=== PATIENT | female | born 1980 | race Caucasian/White ===

== ENCOUNTER 2022-02-25 12:37 | Outpatient (RCR) | payer MEDICAID, SELFPAY ==
[2022-02-25 12:53] VITALS: BP 139/91; PULSE 84; RESP 16; TEMP 36.4; O2SAT 97
[2022-02-25] MEDS: ACETAMINOPHEN 325 MG TABLET 650 MG PO (13:15)
[2022-02-25] MEDS: diphenhydrAMINE 12.5 MG/5 ML ORAL SOLN PO (13:22)
[2022-02-25] MEDS: 0.9 % SODIUM CHLORIDE 250 ml 250 ML 35 ML IV (13:23)
[2022-02-25] MEDS: METHYLPREDNISOLONE SOD SUCC 40 MG/ML IVP (13:24)
[2022-02-25 15:55] VITALS: BP 150/98; PULSE 84; RESP 16; TEMP 36.4; O2SAT 97
== END 2022-02-27 23:59 | disposition home or self-care (01) ==
LOC: CCIC 12:37
PROVIDERS: PCP Family Medicine; Visit Provider Clinical Nurse Specialist
DX: L40.50 Arthropathic psoriasis, unspecified (principal)
CPT/HCPCS: 96365; 96366; 96376; A9270; J2920; J7050

== ENCOUNTER 2022-09-30 12:30 | Outpatient (RCR) | payer MEDICAID, OTHER, SELFPAY ==
[2022-04-08 11:45] VITALS: BP 148/88; PULSE 117; RESP 16; TEMP 36.1; O2SAT 95
[2022-04-08] MEDS: ACETAMINOPHEN 325 MG TABLET 650 MG PO (12:27)
[2022-04-08] MEDS: diphenhydrAMINE 12.5 MG/5 ML ORAL SOLN PO (12:27)
[2022-04-08] MEDS: METHYLPREDNISOLONE SOD SUCC 40 MG/ML IVP (12:27)
[2022-05-20 11:15] VITALS: BP 138/103; PULSE 105; RESP 16; TEMP 35.9; O2SAT 98
[2022-05-20] MEDS: diphenhydrAMINE 12.5 MG/5 ML ORAL SOLN PO (11:24)
[2022-05-20] MEDS: METHYLPREDNISOLONE SOD SUCC 40 MG/ML IVP (11:24)
[2022-05-20] MEDS: ACETAMINOPHEN 325 MG TABLET 650 MG PO (14:37)
--- NOTE | 2022-06-17 12:04 | PC.NURSE ---
Called pt and LM on her primary number with message of infusion appointment on 07/01/2022 at 9:00 AM. Invited a call back with follow-up questions.
[2022-07-07 10:46] VITALS: BP 156/99; PULSE 94; RESP 16; TEMP 35.7; O2SAT 97
[2022-07-07] MEDS: ACETAMINOPHEN 325 MG TABLET 650 MG PO (10:59)
[2022-07-07] MEDS: diphenhydrAMINE 12.5 MG/5 ML ORAL SOLN PO (11:03)
[2022-07-07] MEDS: METHYLPREDNISOLONE SOD SUCC 40 MG/ML IVP ×2 (11:04→11:29)
[2022-07-07] MEDS: SODIUM CHLORIDE 0.9 % (FLUSH) 10 ML SYRINGE IVF (14:57)
[2022-08-19 12:30] VITALS: BP 140/80; PULSE 110; RESP 16; TEMP 36.1; O2SAT 96
[2022-08-19] MEDS: diphenhydrAMINE 12.5 MG/5 ML ORAL SOLN PO (13:04)
[2022-08-19] MEDS: ACETAMINOPHEN 325 MG TABLET 650 MG PO (13:05)
[2022-08-19] MEDS: METHYLPREDNISOLONE SOD SUCC 40 MG/ML IVP (13:18)
--- NOTE | 2022-09-09 16:21 | PC.NURSE ---
Addendum entered by Damaris Ayala RN 09/23/22 10:19: UR department notified [facility] that with new insurance, patient needs to be changed to Inflectra and Site of Care Request for Information needs to be filled out. Chief Payroll Clerk contacted ordering senior electronics engineer and they gave the verbal okay to use inflectra. In the meantime per UR the drug was denied. Chief Payroll Clerk will have UR attempt this again with the use of Inflectra. Patient long and notified of this, she is anxious as she started a new job and getting next Monday off was difficult. Nursing to continue to work on this and patient will call Dr. Fisher to ask to send order EDUARDA. Patient also notes that per Emergency order, her [facility] is still in place through November. Chief Payroll Clerk to inform UR of this as well. Original Note: Pt called with new insurance information and asked to have her medication prior authorized with this new insurance ahead of her next appointment on 09/30/2022. [employer] ID: [id number] Group: [id number] RN advised pt to bring her insurance card with her so that the registration staff could enter it into the system and scan her card. Pt will do so.
--- NOTE | 2022-09-27 14:56 | URNOTE ---
Request received for authorization for?Inflectra (Q5103). Prior authorization is approved for Inflectra by [facility] from 09/23/2022 to 12/21/2022. [facility] does not required prior authorization for Inflectra per medical injectable list on [facility] website.
[2022-09-30 12:43] VITALS: BP 131/85; PULSE 105; RESP 16; TEMP 35.7; O2SAT 96
[2022-09-30] MEDS: ACETAMINOPHEN 325 MG TABLET 650 MG PO (13:03)
[2022-09-30] MEDS: diphenhydrAMINE 12.5 MG/5 ML ORAL SOLN PO (13:05)
[2022-09-30] MEDS: METHYLPREDNISOLONE SOD SUCC 40 MG/ML IVP (13:18)
== END 2022-10-05 23:59 | disposition home or self-care (01) ==
LOC: CCIC 12:30
PROVIDERS: PCP Family Medicine; Referring Provider Family Medicine; Visit Provider Clinical Nurse Specialist
DX: L40.50 Arthropathic psoriasis, unspecified (principal)
CPT/HCPCS: 96376; 96413; 96415; Q5103; A9270; J2920; J7050

== ENCOUNTER 2023-04-07 10:00 | Outpatient (RCR) | payer OTHER, MEDICAID, SELFPAY ==
[2022-11-11] MEDS: diphenhydrAMINE 12.5 MG/5 ML ORAL SOLN PO (09:43)
[2022-11-11] MEDS: ACETAMINOPHEN 325 MG TABLET 650 MG PO (09:43)
[2022-11-11] MEDS: METHYLPREDNISOLONE SOD SUCC 40 MG/ML IVP (09:56)
--- NOTE | 2022-12-06 11:39 | ONC.NURNOTE ---
Patient called office and inquires about her PA being started. This has not been started, as her last note states that she is supposed to be seen in four months. Patient needs prior authorization done each time that this is checked, so new note and last labs will need to be sent to office in order to start the process. Patient told that orders are good until March, unless provider wants to change the dose or frequency. Patient is seeing relay associate this afternoon.
--- NOTE | 2022-12-19 12:53 | ONC.NURNOTE ---
Payal called for status of PA and to set up next appts she was informed that her PA is still pending- appt is currently scheduled for 12/21
--- NOTE | 2022-12-19 15:05 | URNOTE ---
Addendum entered by Jamilah Ibarra RN 12/20/22 14:29: left message with pt stating inflectra was denied. Appt for 12/21/22 cancelled. Original Note: REceived request for prior auth for INfelctra. This has been DENIED. Pt will need to receive at an alternative setting or home infusion. Auth #[id number] See scanned insurance form
[2022-12-21 09:44] VITALS: BP 165/96; PULSE 96; RESP 16; TEMP 35.6; O2SAT 97
[2022-12-21] MEDS: ACETAMINOPHEN 325 MG TABLET 650 MG PO (10:01)
[2022-12-21] MEDS: METHYLPREDNISOLONE SOD SUCC 40 MG/ML IVP ×2 (10:25→10:42)
[2022-12-21] MEDS: diphenhydrAMINE 12.5 MG/5 ML ORAL SOLN PO (10:25)
[2022-12-21] MEDS: 0.9 % SODIUM CHLORIDE 250 ml 250 ML 35 ML IV (11:02)
--- NOTE | 2023-01-30 13:14 | ONC.NURNOTE ---
Received call from Razia with Dr. Fisher's [facility] ([facility]) asking for additional information. Per Razia, pt contacted them asking for a [id number] to be completed to continue infusions here. Reviewed previous notes with Razia citing reason for denial is d/t needing to receive infusions at home or at a non-hospital based infusion center. Dr. Fisher's team will work on [id number].
--- NOTE | 2023-02-16 01:18 | URNOTE ---
Received letter from [employer] (see scanned documents). After appeal, Inflectra has been approved 12/22/2022-02/15/2024 to be given at [facility]. Authorization #[id number]
[2023-02-20] MEDS: METHYLPREDNISOLONE SOD SUCC 62.5 MG/ML (125) 40 MG IVP (13:23)
[2023-02-20] MEDS: ACETAMINOPHEN 325 MG TABLET 650 MG PO (13:24)
[2023-02-20 13:29] VITALS: BP 127/86; PULSE 95; RESP 18; TEMP 36.4; O2SAT 98
[2023-02-20] MEDS: diphenhydrAMINE 12.5 MG/5 ML ORAL SOLN PO (13:34)
[2023-04-07] MEDS: ACETAMINOPHEN 325 MG TABLET 650 MG PO (11:11)
[2023-04-07] MEDS: diphenhydrAMINE 12.5 MG/5 ML ORAL SOLN PO (11:17)
[2023-04-07] MEDS: METHYLPREDNISOLONE SOD SUCC 40 MG/ML IVP (11:17)
== END 2023-05-10 23:59 | disposition home or self-care (01) ==
LOC: CCIC 10:00
PROVIDERS: PCP Family Medicine; Referring Provider Family Medicine; Visit Provider Clinical Nurse Specialist
DX: L40.50 Arthropathic psoriasis, unspecified (principal)
CPT/HCPCS: 96376; 96413; 96415; Q5103; A9270; J2920; J2930; J7050

== ENCOUNTER 2023-08-24 16:31 | Emergency (ER) | payer OTHER, MEDICAID, SELFPAY ==
--- NOTE | 2023-08-24 16:33 | ED.GENADULT ---
HPI - General Adult General Date Seen: 08/24/23 Chief complaint: Nausea/Vomiting Stated complaint: Pain under right rib, diarrhea, nausea Time Seen by Provider: 08/24/23 16:32 History of Present Illness HPI narrative: This is a 42-year-old female with a past medical history including psoriatic arthritis (on Remicade), irritable bowel syndrome, fibromyalgia, anxiety, GERD, endometriosis, hypertension, high who is referred from the Urgent Care to the ER for evaluation of abdominal pain and diarrhea. Symptoms began 4 days ago on Monday evening with a general able malaise and then an episode of watery diarrhea. She felt fatigued and malaise following day on Monday and did have a few more episodes of watery, nonbloody, me non mucousy diarrhea. 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 She has had ongoing symptoms for the past couple of days including frequent watery diarrhea-triggered whenever she eats or drinks. She has been nauseous but not vomiting. She has been weak and sometimes has had chills but no objective fever. She has been experiencing abdominal pain some on the left and some on the right. Last night she had an episode that lasted an hour to of intense stabbing right upper quadrant abdominal pain. The patient relates it as similar in intensity to uterine contractions during delivery, but it was in the right upper quadrant. She is not having any further right upper quadrant pain today. She is having some mild sensitivity and tenderness in her upper abdomen as well as on the left side. She is feeling fatigued and weak. She still having frequent watery diarrhea. She tried to take Pepto-Bismol for her diarrhea, without any benefit. No recent travel. No recent antibiotics. Related Data Home Medications Medication Instructions Recorded Confirmed albuterol sulfate 90 mcg/actuation 2 inh inhalation Q4-6H PRN 02/25/22 08/24/23 aerosol inhaler (ProAir HFA) cetirizine 10 mg tablet (Zyrtec) 10 mg PO DAILY PRN 02/25/22 08/24/23 diazepam 5 mg tablet 5 mg PO TID PRN 02/25/22 08/24/23 dicyclomine 20 mg tablet 20 mg PO QID PRN 02/25/22 08/24/23 epinephrine 0.15 mg/0.3 mL 0.3 mg IM Q10M PRN 02/25/22 08/24/23 injection,auto-injector levonorgestrel 21 mcg/24 hours (8 1 device intrauterine ONCE 02/25/22 08/24/23 yrs) 52 mg intrauterine device sumatriptan succinate 25 mg tablet See Rx Instructions PO .COMPLEX 02/25/22 08/24/23 triamcinolone acetonide 0.1 % 1 applic topical BID PRN 02/25/22 08/24/23 topical cream duloxetine 30 mg capsule,delayed 60 mg PO DAILY 04/08/22 08/24/23 release leflunomide 10 mg tablet 10 mg PO DAILY 04/08/22 08/24/23 cyclobenzaprine 5 mg tablet 5 mg PO Q12H PRN 05/09/22 08/24/23 infliximab 100 mg intravenous IV 09/05/22 08/24/23 solution (Remicade) semaglutide 0.25 mg or 0.5 mg (2 0.25 mg subcut QWEEK 04/07/23 08/24/23 mg/1.5 mL) subcutaneous pen injector Previous Rx's Medication Instructions Recorded loperamide 2 mg capsule 2 mg PO Q4H PRN loose stool #10 08/24/23 caps ondansetron 4 mg disintegrating 4 mg PO Q8H PRN nausea and 08/24/23 tablet vomiting #10 tabs Allergies Allergy/AdvReac Type Severity Reaction Status Date / Time bee venom protein (honey bee) Allergy Severe Anaphylaxis Verified 08/11/23 08:45 honey Allergy Severe Anaphylaxis Verified 08/11/23 08:45 latex Allergy Severe Verified 08/11/23 08:45 shrimp Allergy Severe Verified 08/11/23 08:45 shellfish derived Allergy Intermediate Swelling Verified 08/11/23 08:45 of Lip/Tongue/Throat avocado AdvReac Intermediate Verified 08/11/23 08:45 methotrexate AdvReac Intermediate Verified 08/11/23 08:45 Bee Wax Allergy Severe Anaphylaxis Uncoded 03/10/23 18:13 PFSH PFSH Medical History Strep pharyngitis ?J02.0 - Streptococcal pharyngitis (ICD-10) History of migraine ?Z86.69 - Personal history of other diseases of the nervous system and sense organs (ICD-10) IUD (intrauterine device) in place ?Z97.5 - Presence of (intrauterine) contraceptive device (ICD-10) PTSD (post-traumatic stress disorder) ?F43.10 - Post-traumatic stress disorder, unspecified (ICD-10) Hypertension ?I10 - Essential (primary) hypertension (ICD-10) Fibromyalgia (12/28/17) ?M79.7 - Fibromyalgia (ICD-10) Vitamin D deficiency ?E55.9 - Vitamin D deficiency, unspecified (ICD-10) Irritable bowel syndrome ?K58.9 - Irritable bowel syndrome without diarrhea (ICD-10) History of depression (06/26/13) ?Z87.59 - Personal history of other complications of , childbirth and the puerperium (ICD-10) ?Z86.59 - Personal history of other mental and behavioral disorders (ICD-10) Generalized anxiety disorder ?F41.1 - Generalized anxiety disorder (ICD-10) Gastroesophageal reflux disease (08/10/15) ?K21.9 - Gastro-esophageal reflux disease without esophagitis (ICD-10) Endometriosis (08/19/09) ?N80.9 - Endometriosis, unspecified (ICD-10) Immunosuppressed status ?D84.9 - Immunodeficiency, unspecified (ICD-10) Psoriatic arthritis ?L40.50 - Arthropathic psoriasis, unspecified (ICD-10) Multiple drug allergies ?Z88.9 - Allergy status to unspecified drugs, medicaments and biological substances (ICD-10) Surgical History History of benign breast biopsy ?Z98.890 - Other specified postprocedural states (ICD-10) History of laparoscopy (08/19/09) ?Z98.890 - Other specified postprocedural states (ICD-10) Family History Mother Diabetes High cholesterol Skin cancer Rheumatoid arthritis Sister Rheumatoid arthritis Daughter Rheumatoid arthritis Social History Narrative: . 3 children. Nonsmoker. 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 Highest level of school completed/degree received: Bachelor's degree How many days of moderate to strenuous exercise, like a brisk walk, did you do in the last 7 days: 3 Smoking Status: Never smoker Do you use any of these nicotine containing products: None Second hand tobacco smoke exposure: No How often do you have a drink containing alcohol: never How often do you have six or more drinks on one occasion: Never AUDIT-C Alcohol total score: 0 Non-prescribed substance use: denies use Are you now , , , , never or living with a partner: Social isolation score (0-1 are the most socially isolated patients): 0 Do you think of yourself as: straight/heterosexual Gender Identity: female Are you currently sexually active: No service: No Exam Narrative: Exam Narrative: Constitutional: Appears well-developed and well-nourished. Alert. Conversant. Non toxic. HENT: Head: Atraumatic. Nose: Nose normal. Mouth/Throat: Oral mucosa is clear and moist. Not desiccated or cracked. no trismus. Pharynx normal. Eyes: Conjunctivae normal. EOM normal. Pupils equal, round, and reactive to light. No scleral icterus. Neck: Normal range of motion. Neck supple. No tracheal deviation present. Cardiovascular: Normal rate, regular rhythm. No gallop. No friction rub. No murmur heard. Symmetric radial artery pulses Pulmonary/Chest: Effort normal. No stridor. No respiratory distress. No wheezes. No rales. No rhonchi . No tenderness. Abdominal: Soft. Bowel sounds normal. No distension. No mass. Left lower quadrant> right upper quadrant and epigastric tenderness. No right lower quadrant tenderness. No CVA tenderness. No rebound. No guarding. Musculoskeletal: RUE: Normal range of motion. No tenderness. No deformity LUE: Normal range of motion. No tenderness. No deformity RLE: Normal range of motion. No edema. No tenderness. No deformity LLE: Normal range of motion. No edema. No tenderness. No deformity Neurological: Alert and oriented to person, place, and time. Normal strength. CN II-VII intact. No sensory deficit. GCS eye subscore is 4. GCS verbal subscore is 5. GCS motor subscore is 6. Normal coordination Skin: Skin is warm and dry. No rash noted. No pallor. Normal capillary refill. Psychiatric: Normal mood. Normal affect. Const: Vital Signs, click to edit/add: Vital Signs - 24 hr 08/24/23 16:41 08/24/23 18:53 Temperature 97.9 F Pulse Rate [Pulse Oximeter] 97 108 H Respiratory Rate 16 Blood Pressure [Ri ght Upper Arm] 182/119 H 166/111 H Pulse Oximetry 98 99 Oxygen Delivery Me thod Room Air Room Air Course Vital Signs Vital signs: Initial Vital Signs Temperature 97.9 F 08/24/23 16:41 Temperature Source Temporal Artery Scan 08/24/23 16:41 Pulse Rate 97 08/24/23 16:41 Pulse Rhythm Regular 08/24/23 16:41 Respiratory Rate 16 08/24/23 16:41 Blood Pressure 182/119 H 08/24/23 16:41 Blood Pressure Mean 140 H 08/24/23 16:41 Blood Pressure Position Sitting 08/24/23 16:41 Pulse Oximetry 98 08/24/23 16:41 Oxygen Delivery Method Room Air 08/24/23 16:41 Vital Signs Temperature 97.9 F 08/24/23 16:41 Pulse Rate 97 08/24/23 16:41 Respiratory Rate 16 08/24/23 16:41 Blood Pressure 182/119 H 08/24/23 16:41 Pulse Oximetry 98 08/24/23 16:41 Oxygen Delivery Method Room Air 08/24/23 16:41 Temperature 97.9 F 08/24/23 16:41 Pulse Rate 108 H 08/24/23 18:53 Respiratory Rate 16 08/24/23 16:41 Blood Pressure 166/111 H 08/24/23 18:53 Pulse Oximetry 99 08/24/23 18:53 Oxygen Delivery Method Room Air 08/24/23 18:53 Medications Administered Medications: Discontinued Medications Generic Name Dose Route Start Last Admin Trade Name Freq PRN Reason Stop Dose Admin Sodium Chloride 1,000 mls @ 1,000 mls/hr 08/24/23 17:45 08/24/23 18:32 0.9 % Sodium Chloride 1000 Ml IV 08/24/23 18:44 1,000 mls/hr .Q1H JAMIE Administration Ondansetron HCl 4 mg 08/24/23 17:56 08/24/23 18:00 Ondansetron 2 Mg/Ml Inj IVP 08/24/23 17:57 4 mg ONCE ONE Administration Medical Decision Making MDM Narrative Medical decision making narrative: This patient presents with a 4 day history of watery diarrhea associated with an intense episode of crampy right upper quadrant abdominal pain last night (now resolved today) and persistent left-sided abdominal pain since yesterday. The patient's symptoms and exam could be consistent with a viral GI infection. She also just started on Ozempic which can cause diarrhea and abdominal symptoms. She also has a history of irritable bowel syndrome. There is no high fever, white count is normal. No bilious or bloody emesis, blood or mucous in the stool, or other strongly suspicious signs for a bacterial infection. However I did order stool cultures since she is immunosuppressed on Remicade for psoriatic arthritis. No recent antibiotics but will also add on C diff testing. Fortunately, diarrhea has actually stopped here in the ER and she is tolerating oral apple sauce and liquids, and not triggering episodes of diarrhea. Will send the patient home with stool collection kit so she can bring a sample back if diarrhea persist. She did have significant abdominal pain, most notable in the left lower quadrant on my exam. CT scan is obtained and is fortunately normal. No evidence for colitis, diverticulitis, bowel obstruction, appendicitis, or other surgical emergency. With consideration toward her episode of right upper quadrant pain yesterday, no obvious gallstones or signs of cholecystitis on the CT. With no persistent right upper quadrant pain would hold off on gallbladder ultrasound for now. Labs show no concerning electrolyte disturbance or renal failure. LFTs and lipase normal. After meds given the patient is feeling better. At this point, the patient is non-septic appearing and well hydrated.I think the patient can be managed as an outpatient. We have discussed oral rehydration strategies. They understand and can perform the needed interventions at home. I have provided a prescription for antiemetics to facilitate oral hydration (Imodium, Zofran). We have discussed the signs and symptoms of worsening dehydration. They understand the need for immediate reevaluation if any of these symptoms occur. They are also directed to obtain close outpatient follow up within 2-3 days. Lab Data Labs: Lab Results 08/24/23 Range/Units 17:50 WBC 9.07 (4.50-11.00) K/uL RBC 5.49 H (4.00-5.20) m/uL Hgb 14.6 (12.0-16.0) gm/dL Hct 45.5 (33.0-51.0) % MCV 83 (80-100) fL MCH 27 (26-34) pg MCHC 32 (32-36) gm/dL RDW Coeff of Fouzia 13.0 (11.5-15.5) % Plt Count 231 (140-440) K/uL Neut % (Auto) 68.4 (42.0-72.0) % Lymph % (Auto) 24.0 (20-44) % [place] % (Auto) 5.0 (0.0-11.0) % Eos % (Auto) 2.3 (0.0-7.0) % Baso % (Auto) 0.2 (0.0-3.0) % Neut # (Auto) 6.20 (1.7-7.0) K/uL Lymph # (Auto) 2.18 (0.90-2.90) K/uL [place] # (Auto) 0.50 (0.00-0.90) K/UL Eos # (Auto) 0.21 (0.00-0.50) K/uL Baso # (Auto) 0.02 (0.00-0.30) K/uL Abs Immat Gran (auto) 0.01 (0.00-0.30) K/uL Imm/Tot Granulo (auto) 0.1 % Sodium 137 (135-149) mmol/L Potassium 3.9 (3.6-5.1) mmol/L Chloride 104 (96-114) mmol/L Carbon Dioxide 25 (20-32) mmol/L Anion Gap 8 (7-15) mEq/L BUN 10 (5-24) mg/dL Creatinine 0.8 (0.5-1.5) mg/dL Estimated Creat Clear 74.23 Estimated GFR 93 ml/min Glucose 94 (60-115) mg/dL Calcium 9.2 (8.4-10.6) mg/dL Total Bilirubin 0.2 (0.1-1.5) mg/dL AST 22 (12-35) U/L ALT 16 (4-35) U/L Alkaline Phosphatase 64 (40-150) U/L Total Protein 7.7 (6.0-8.3) g/dL Albumin 4.3 (3.3-5.0) g/dL Lipase 28 (23-300) U/L Imaging Data CT scan - abdomen: Attestation: I have reviewed the pertinent imaging results. Radiologist's impression: IMPRESSION: No acute intra-abdominal process identified. Discharge Plan Discharge Clinical Impression: Diarrhea, Abdominal pain Patient Disposition: Home, Self-Care Condition: Stable Instructions: Acute Diarrhea (ED), Abdominal Pain (ED) Additional Instructions: As we discussed, use Zofran for nausea and Imodium if needed for diarrhea. If you have ongoing diarrhea, please bring a sample of the diarrhea back to the lab to get tested for the bacterial infections and C diff. If you have worsening symptoms such as high fever, severe pain, bloody stool, weakness or lightheadedness, or dehydration, please come back to the ER right away. If your symptoms are not completely resolved within 3 days, please recheck with your regular doctor, or come back to the ER for a recheck. Prescriptions: New ondansetron 4 mg tablet,disintegrating 4 mg PO Q8H PRN (Reason: nausea and vomiting) Qty: 10 0RF loperamide 2 mg capsule 2 mg PO Q4H PRN (Reason: loose stool) Qty: 10 0RF Rx Instructions: administer after each loose stool until symptoms controlled; do not exceed 8 mg per 24 hrs No Action cyclobenzaprine 5 mg tablet 5 mg PO Q12H PRN infliximab [Remicade] 100 mg recon soln IV albuterol sulfate [ProAir HFA] 90 mcg/actuation HFA aerosol inhaler 2 inh inhalation Q4-6H PRN cetirizine [Zyrtec] 10 mg tablet 10 mg PO DAILY PRN diazepam 5 mg tablet 5 mg PO TID PRN dicyclomine 20 mg tablet 20 mg PO QID PRN epinephrine 0.15 mg/0.3 mL auto-injector 0.3 mg IM Q10M PRN Rx Instructions: for 2 doses levonorgestrel 20 mcg/24 hours (7 yrs) 52 mg intrauterine device 1 device intrauterine ONCE sumatriptan succinate 25 mg tablet See Rx Instructions PO .COMPLEX Rx Instructions: take 1 tab at onset of headache; if no relief may repeat 1 tab after at least 2 hrs; max = 4 tabs/24 hr PO triamcinolone acetonide 0.1 % cream 1 applic topical BID PRN duloxetine 30 mg capsule,delayed release(DR/EC) 60 mg PO DAILY Patient Comments: CROSS TAPER W/SERTRALINE INSTRUCTED. START DULOXETINE 30MG DAILY X1WK THEN INCREASE TO 60MG DAILY leflunomide 10 mg tablet 10 mg PO DAILY Patient Comments: TAKE 1 TABLET BY MOUTH EVERY DAY semaglutide 0.25 mg or 0.5 mg(2 mg/1.5 mL) pen injector 0.25 mg subcut QWEEK Rx Instructions: for 4 weeks Follow Up/Referrals: Mary Lou Nunn DO [Primary Care Provider] - Stand Alone Forms: MyHealth Info Instructions
[2023-08-24 16:41] VITALS: BP 182/119; PULSE 97; RESP 16; TEMP 36.6; O2SAT 98; BMI 41.3
--- NOTE | 2023-08-24 17:39 | CRLHL7_ITS ---
For Patients: As a result of the Century Cures Act, medical imaging exams and procedure reports are released immediately into your electronic medical record. You may view this report before your referring provider. If you have questions, please contact your health care provider. INDICATION: Lug AND RUQ PAIN, DIARRHEA. TECHNIQUE: CT abdomen and pelvis acquired with 115 cc Isovue 370 IV contrast. COMPARISON: None. FINDINGS: Lower chest: Unremarkable. Liver: Unremarkable. Normal in size and attenuation. No suspicious masses. Gallbladder and bile ducts: Unremarkable. No stones or inflammation. No biliary dilatation. Pancreas: Unremarkable. No mass or inflammation. Spleen: Unremarkable. Normal in size. No masses. Adrenal glands: Unremarkable. No nodules. Kidneys: Unremarkable. No suspicious masses, stones, or hydronephrosis. GI tract: Unremarkable. Normal in caliber. No sign of mass or inflammation. Normal appendix. Vasculature: Abdominal aorta is normal in caliber. Mesenteric arteries are patent. Lymph nodes: No lymphadenopathy. Peritoneum/Abdominal Wall: Small fat containing umbilical hernia. No sign of mass or infiltration. No free air or significant free fluid. Pelvis: IUD appears to be appropriately position. Uterus and bladder are otherwise unremarkable. Bones: Unremarkable for age. IMPRESSION: No acute intra-abdominal process identified. Please note that all CT scans at this facility use dose modulation, iterative reconstruction, and/or weight-based dosing when appropriate to reduce radiation dose to as low as reasonably achievable. Dictated by Tanmay Mittal MD @ 08/24/2023 6:48:16 PM (Electronically Signed)
[2023-08-24] MEDS: ONDANSETRON 2 MG/ML inj 4 MG IVP (18:00)
[2023-08-24 18:03] LABS: Basophils Absolute Auto 0.02 K/uL (0.00-0.30); Basophils Percent Auto 0.2 % (0.0-3.0); Eosinophils Absolute Auto 0.21 K/uL (0.00-0.50); Eosinophils Percent Auto 2.3 % (0.0-7.0); Hematocrit 45.5 % (33.0-51.0); Hemoglobin* 14.6 gm/dL (12.0-16.0); Immature Granulocytes Abs Auto 0.01 K/uL (0.00-0.30); Immature Granulocytes Pct Auto 0.1 %; Lymphocytes Absolute Auto 2.18 K/uL (0.90-2.90); Mean Corpuscular HGB Conc 32 gm/dL (32-36); Mean Corpuscular Hemoglobin 27 pg (26-34); Mean Corpuscular Volume 83 fL (80-100); Neutrophils Percent Auto 68.4 % (42.0-72.0); Platelet Count* 231 K/uL (140-440); Red Blood Count 5.49 m/uL (4.00-5.20); White Blood Count* 9.07 K/uL (4.50-11.00)
[2023-08-24 18:13] LABS: Slide Review Reflex No
[2023-08-24 18:16] LABS: Albumin* 4.3 g/dL (3.3-5.0)
[2023-08-24 18:17] LABS: Chloride* 104 mmol/L (96-114); Potassium* 3.9 mmol/L (3.6-5.1); Sodium* 137 mmol/L (135-149)
[2023-08-24 18:19] LABS: Alkaline Phosphatase* 64 U/L (40-150); Anion Gap 8 mEq/L (7-15); Aspartate Amino Transferase* 22 U/L (12-35); Bilirubin Total* 0.2 mg/dL (0.1-1.5); Blood Urea Nitrogen* 10 mg/dL (5-24); Carbon Dioxide* 25 mmol/L (20-32); Creatinine* 0.8 mg/dL (0.5-1.5); Est. Creatinine Clearance* 74.23; Estimated Glomerular Filt Rate 93 ml/min; Lipase* 28 U/L (23-300); Total Protein* 7.7 g/dL (6.0-8.3)
[2023-08-24 18:20] LABS: Alanine Aminotransferase* 16 U/L (4-35); Calcium* 9.2 mg/dL (8.4-10.6); Glucose* 94 mg/dL (60-115)
[2023-08-24] MEDS: 0.9 % SODIUM CHLORIDE 1000 ml 1,000 ML IV (18:32)
[2023-08-24 18:53] VITALS: BP 166/111; PULSE 108; O2SAT 99
[2023-08-24 19:21] LABS: Appearance Urine Clear (Clear); Bilirubin Urine Negative (Negative); Blood Urine Negative (Negative); Color Urine Yellow (Yellow); Glucose Urine Negative (Negative); Ketones Urine Negative (Negative); Leukocyte Esterase Urine Negative (Negative); Nitrite Urine Negative (Negative); Protein Urine Negative (Negative); Specific Gravity Urine <= 1.005 (1.000-1.030); Urobilinogen Urine 0.2 (0.2-1.0)
[2023-08-24 19:36] LABS: RBC Urine 0-2 (0-2); Squamous Epithelial Cell Urine Few (None-Few); WBC Urine 0-2 (0-5)
[2023-08-28 10:28] LABS: C.Difficile Negative (Negative); CDIFFEPI 027 PRESUMPTIVE NEGATIVE (Negative)
== END 2023-08-24 19:27 | disposition home or self-care (01) ==
PROVIDERS: Emergency Provider Emergency Medicine; PCP Family Medicine
DX: R10.9 Unspecified abdominal pain (principal); R19.7 Diarrhea, unspecified
CPT/HCPCS: 36415; 74177; 80053; 81001; 83690; 85025; 87045; 87046; 87077; 87427; 87493; 96374; 99283; 99284; J2405; J7030; Q9967

== ENCOUNTER 2023-11-03 09:00 | Outpatient (RCR) | payer MEDICAID, OTHER, SELFPAY ==
--- NOTE | 2023-05-15 11:13 | ONC.NURNOTE ---
Diagnosis: Psoriatic Arthritis
--- NOTE | 2023-05-18 13:55 | URNOTE ---
Request received for authorization for?Inflectra (Q5103). Prior Authorization is not required. The pt carries [facility] and coverage is active. Inflectra (Q5103) does not require authorization per medical injectable list on are website.
[2023-05-19 10:31] VITALS: BP 141/94; PULSE 103; RESP 16; TEMP 36.3; O2SAT 98
[2023-05-19] MEDS: ACETAMINOPHEN 325 MG TABLET 650 MG PO (11:17)
[2023-05-19] MEDS: METHYLPREDNISOLONE SOD SUCC 40 MG/ML IVP (11:18)
[2023-05-19] MEDS: diphenhydrAMINE 12.5 MG/5 ML ORAL SOLN PO (11:18)
[2023-05-19] MEDS: 0.9 % SODIUM CHLORIDE 250 ml 250 ML 35 ML IV (11:32)
--- NOTE | 2023-05-19 14:40 | PC.NURSE ---
RN entered pt's room to attend to pump beeping. Pt had received 15 minutes of Remicade at 40 cc/hour. Payal c/o itching on her forearm. RN stopped infusion and checked blood return on peripheral IV. All was good and intact. Pt then noted some pinpoint red dots on her arm. Adwoa Ge APRN assessed. Remicade held for 15 minutes and restarted at 40 cc/hour for another 15 minutes. Redness of forearm dissipated after koban removed. Pt tolerated completion of infusion.
--- NOTE | 2023-06-12 14:37 | URNOTE ---
Inflectra (Q5103) has been approved, up to 1200mg/120units per visit, administered no more often that once every 4 weeks. 06/08/2023-02/15/2024. Auth #[id number]
[2023-06-30 09:20] VITALS: BP 170/96; PULSE 100; RESP 16; TEMP 35.7; O2SAT 94
[2023-06-30] MEDS: 0.9 % SODIUM CHLORIDE 250 ml 250 ML 35 ML IV ×2 (10:15→13:30)
[2023-06-30] MEDS: diphenhydrAMINE 12.5 MG/5 ML ORAL SOLN PO (10:23)
[2023-06-30] MEDS: METHYLPREDNISOLONE SOD SUCC 40 MG/ML IVP (10:23)
[2023-06-30] MEDS: ACETAMINOPHEN 325 MG TABLET 650 MG PO (10:25)
[2023-06-30 16:29] LABS: Hematocrit 40.6 % (33.0-51.0); Hemoglobin* 12.7 gm/dL (12.0-16.0); Mean Corpuscular HGB Conc 31 gm/dL (32-36); Mean Corpuscular Hemoglobin 27 pg (26-34); Mean Corpuscular Volume 85 fL (80-100); Platelet Count* 243 K/uL (140-440); Red Blood Count 4.79 m/uL (4.00-5.20); White Blood Count* 7.82 K/uL (4.50-11.00)
[2023-06-30 16:33] LABS: Slide Review Reflex No
[2023-06-30 16:34] LABS: Albumin* 4.2 g/dL (3.3-5.0); Chloride* 102 mmol/L (96-114); Potassium* 4.2 mmol/L (3.6-5.1); Sodium* 136 mmol/L (135-149)
[2023-06-30 16:37] LABS: Alkaline Phosphatase* 67 U/L (40-150); Anion Gap 9 mEq/L (7-15); Aspartate Amino Transferase* 27 U/L (12-35); Bilirubin Total* 0.5 mg/dL (0.1-1.5); Blood Urea Nitrogen* 9 mg/dL (5-24); Carbon Dioxide* 25 mmol/L (20-32); Creatinine* 0.7 mg/dL (0.5-1.5); Estimated Glomerular Filt Rate 109 ml/min; Glucose* 69 mg/dL (60-115); Total Protein* 7.5 g/dL (6.0-8.3)
[2023-06-30 16:38] LABS: Alanine Aminotransferase* 18 U/L (4-35); Calcium* 8.6 mg/dL (8.4-10.6)
[2023-08-11 08:31] VITALS: BP 156/98; PULSE 90; RESP 16; TEMP 36.5; O2SAT 99
[2023-08-11] MEDS: ACETAMINOPHEN 325 MG TABLET 650 MG PO (08:40)
[2023-08-11] MEDS: METHYLPREDNISOLONE SOD SUCC 40 MG/ML IVP (09:06)
[2023-08-11] MEDS: 0.9 % SODIUM CHLORIDE 250 ml 250 ML 35 ML IV (09:08)
[2023-09-22 08:17] VITALS: BP 147/89; PULSE 94; RESP 16; TEMP 36.1; O2SAT 99
[2023-09-22 08:36] VITALS: TEMP 36.1
[2023-09-22] MEDS: ACETAMINOPHEN 325 MG TABLET 650 MG PO (08:36)
[2023-09-22] MEDS: METHYLPREDNISOLONE SOD SUCC 40 MG/ML IVP (09:03)
[2023-09-22] MEDS: 0.9 % SODIUM CHLORIDE 250 ml 250 ML 35 ML IV (09:04)
[2023-09-22] MEDS: diphenhydrAMINE 25 MG CAPSULE 12.5 MG PO (09:23)
--- NOTE | 2023-09-22 14:00 | PC.NURSE ---
Pt present at [facility] for Inflectra infusion. RN went into pt's room to increase the rate and it was noted that the Inflectra tubing was not in the pump and that just saline was running. RN placed the tubing and notified pt. Started back at initial rate of 40 cc/hour. Initiating RN notified. Infusion completed without incident.
[2023-11-03 09:14] VITALS: BP 164/99; PULSE 99; RESP 20; TEMP 35.7; O2SAT 98
[2023-11-03] MEDS: METHYLPREDNISOLONE SOD SUCC 40 MG/ML IVP (09:57)
[2023-11-03] MEDS: diphenhydrAMINE 12.5 MG/5 ML ORAL SOLN PO (09:57)
[2023-11-03] MEDS: ACETAMINOPHEN 325 MG TABLET 650 MG PO (09:57)
[2023-11-03] MEDS: 0.9 % SODIUM CHLORIDE 250 ml 250 ML 35 ML IV (09:58)
== END 2023-11-15 23:59 | disposition home or self-care (01) ==
LOC: CCIC 09:00
PROVIDERS: PCP Family Medicine; Referring Provider Family Medicine; Visit Provider Clinical Nurse Specialist
DX: L40.50 Arthropathic psoriasis, unspecified (principal)
CPT/HCPCS: 36415; 80053; 80230; 85027; 96365; 96366; 96376; 96413; 96415; Q5103; A9270; J2919; J2920; J7050

== ENCOUNTER 2024-05-08 06:36 | Emergency (ER) | payer OTHER, MEDICAID, SELFPAY ==
[2024-05-08 06:48] VITALS: BP 180/137; PULSE 127; RESP 22; TEMP 35.3; O2SAT 100; BMI 37.2
--- NOTE | 2024-05-08 07:08 | ED_ITS ---
HPI - General Adult General Chief complaint: Nausea/Vomiting <Doreen Baldwin MD - Last Filed: 05/11/24 23:59> Stated complaint: Cant stop vomiting, headache <Doreen Baldwin MD - Last Filed: 05/11/24 23:59> Time Seen by Provider: 05/08/24 06:53 <Doreen Baldwin MD - Last Filed: 05/11/24 23:59> Source: patient <Doreen Baldwin MD - Last Filed: 05/11/24 23:59> Mode of arrival: ambulatory <Doreen Baldwin MD - Last Filed: 05/11/24 23:59> Limitations: no limitations <Doreen Baldwin MD - Last Filed: 05/11/24 23:59> History of Present Illness HPI narrative: 43-year-old female with no prior abdominal surgical history reports to the emergency department for evaluation of vomiting since 2:00 a.m. which is about 4 hours prior to arrival. No abdominal pain except some achiness from retching. No trauma or injury. No hemoptysis, hematemesis or bloody stools. Near constant retching for the past few hours. Does not take any anticoagulants. Does not take any antacid medications. Does use DLP 1 inhibitor for weight loss, not new. Was feeling a little nauseated before she took her dose last night, seemed to worsen things and now she can not hold down even any liquids. No diarrhea. Tried taking oral Zofran about 2 hours ago with no significant improvement in symptoms. Retching noted in triage. Recent prescription for Keflex for pharyngitis, strep negative. The rationale is unclear and I do not have access to the records. Patient states it started with a URI and then worsened after a few days to a sore throat. Her provider who knows her well did recommend antibiotics because she is immunocompromised. Denies chance of p regnancy, reports that she has an IUD for contraception. No fever. Past medical history notable for anxiety, GERD, fibromyalgia, psoriatic arthritis. ROS notable for the GI symptoms as above but also headache and fatigue. Otherwise denies times 12 systems. <Doreen Baldwin MD - Last Filed: 05/11/24 23:59> Related Data Home medications: Home Medications ?Medication ?Instructions ?Recorded ?Confirmed albuterol sulfate 90 mcg/actuation 2 inh inhalation Q4-6H PRN 02/25/22 05/09/24 aerosol inhaler (ProAir HFA) cetirizine 10 mg tablet (Zyrtec) 10 mg PO DAILY PRN 02/25/22 05/09/24 diazepam 5 mg tablet 5 mg PO TID PRN 02/25/22 05/09/24 dicyclomine 20 mg tablet 20 mg PO QID PRN 02/25/22 05/09/24 epinephrine 0.15 mg/0.3 mL 0.3 mg IM Q10M PRN 02/25/22 05/09/24 injection,auto-injector levonorgestrel 21 mcg/24 hr (up to 1 device intrauterine ONCE 02/25/22 05/09/24 8 years) 52 mg intrauterine device sumatriptan succinate 25 mg tablet See Rx Instructions PO .COMPLEX 02/25/22 05/09/24 triamcinolone acetonide 0.1 % 1 applic topical BID PRN 02/25/22 05/09/24 topical cream duloxetine 30 mg capsule,delayed 60 mg PO DAILY 04/08/22 05/09/24 release leflunomide 10 mg tablet 10 mg PO DAILY 04/08/22 05/09/24 cyclobenzaprine 5 mg tablet 5 mg PO Q12H PRN 05/09/22 05/09/24 infliximab 100 mg intravenous IV 09/05/22 05/02/24 solution (Remicade) semaglutide 0.25 mg or 0.5 mg (2 2.4 mg subcut QWEEK 04/07/23 05/09/24 mg/1.5 mL) subcutaneous pen injector metoprolol succinate 25 mg 25 mg PO DAILY 01/26/24 05/09/24 tablet,extended release 24 hr metoprolol succinate 50 mg 50 mg PO DAILY 05/08/24 05/09/24 tablet,extended release 24 hr Previous Rx's ?Medication ?Instructions ?Recorded loperamide 2 mg capsule 2 mg PO Q4H PRN loose stool #10 08/24/23 caps ondansetron 4 mg disintegrating 4 mg PO Q8H PRN nausea and 08/24/23 tablet vomiting #10 tabs cephalexin 500 mg capsule 500 mg PO BID 10 days #20 caps 05/02/24 fluconazole 150 mg tablet 150 mg PO Q3D 2 doses #2 tabs 05/02/24 <Doreen Baldwin MD - Last Filed: 05/11/24 23:59> Allergies/adverse reactions: Allergies Allergy/AdvReac Type Severity Reaction Status Date / Time bee venom protein (honey bee) Allergy Severe Anaphylaxis Verified 05/08/24 06:52 honey Allergy Severe Anaphylaxis Verified 05/08/24 06:52 latex Allergy Severe Verified 05/08/24 06:52 shrimp Allergy Severe Verified 05/08/24 06:52 shellfish derived Allergy Intermediate Swelling Verified 05/08/24 06:52 of Lip/Tongue/Throat avocado AdvReac Intermediate Verified 05/08/24 06:52 methotrexate AdvReac Intermediate Verified 05/08/24 06:52 Bee Wax Allergy Severe Anaphylaxis Uncoded 05/02/24 09:41 <Doreen Baldwin MD - Last Filed: 05/11/24 23:59> PFSH PFSH Medical History: Medical History Strep pharyngitis ?J02.0 - Streptococcal pharyngitis (ICD-10) History of migraine ?Z86.69 - Personal history of other diseases of the nervous system and sense organs (ICD-10) IUD (intrauterine device) in place ?Z97.5 - Presence of (intrauterine) contraceptive device (ICD-10) PTSD (post-traumatic stress disorder) ?F43.10 - Post-traumatic stress disorder, unspecified (ICD-10) Hypertension ?I10 - Essential (primary) hypertension (ICD-10) Fibromyalgia (12/28/17) ?M79.7 - Fibromyalgia (ICD-10) Vitamin D deficiency ?E55.9 - Vitamin D deficiency, unspecified (ICD-10) Irritable bowel syndrome ?K58.9 - Irritable bowel syndrome without diarrhea (ICD-10) History of depression (06/26/13) ?Z87.59 - Personal history of other complications of , childbirth and the [place] (ICD-10) ?Z86.59 - Personal history of other mental and behavioral disorders (ICD-10) Generalized anxiety disorder ?F41.1 - Generalized anxiety disorder (ICD-10) Gastroesophageal reflux disease (08/10/15) ?K21.9 - Gastro-esophageal reflux disease without esophagitis (ICD-10) Endometriosis (08/19/09) ?N80.9 - Endometriosis, unspecified (ICD-10) Immunosuppressed status ?D84.9 - Immunodeficiency, unspecified (ICD-10) Psoriatic arthritis ?L40.50 - Arthropathic psoriasis, unspecified (ICD-10) Multiple drug allergies ?Z88.9 - Allergy status to unspecified drugs, medicaments and biological substances (ICD-10) <Doreen Baldwin MD - Last Filed: 05/11/24 23:59> Surgical History: Surgical History History of benign breast biopsy ?Z98.890 - Other specified postprocedural states (ICD-10) History of laparoscopy (08/19/09) ?Z98.890 - Other specified postprocedural states (ICD-10) <Doreen Baldwin MD - Last Filed: 05/11/24 23:59> Family History: Family History Mother Diabetes High cholesterol Skin cancer Rheumatoid arthritis Sister Rheumatoid arthritis Daughter Rheumatoid arthritis <Doreen Baldwin MD - Last Filed: 05/11/24 23:59> Social History: Social History Narrative: . 3 children. Nonsmoker. 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 Highest level of school completed/degree received: Bachelor's degree How many days of moderate to strenuous exercise, like a brisk walk, did you do in the last 7 days: 3 Smoking Status: Never smoker Do you use any of these nicotine containing products: None Second hand tobacco smoke exposure: No How often do you have a drink containing alcohol: never How often do you have six or more drinks on one occasion: Never AUDIT-C Alcohol total score: 0 Non-prescribed substance use: denies use Are you now , , , , never or living with a partner: Social isolation score (0-1 are the most socially isolated patients): 0 Do you think of yourself as: straight/heterosexual Gender Identity: female Are you currently sexually active: No service: No <Doreen Baldwin MD - Last Filed: 05/11/24 23:59> Exam Const: Vital Signs, click to edit/add: Vital Signs - 24 hr 05/08/24 06:48 Temperature 95.5 F L Pulse Rate [Pulse Oximeter] 127 H Respiratory Rate 22 Blood Pressure [Ri ght Upper Arm] 180/137 H Pulse Oximetry 100 Oxygen Delivery Me thod Room Air <Doreen Baldwin MD - Last Filed: 05/11/24 23:59> Vital Signs, click to edit/add: Vital Signs - 24 hr 05/08/24 06:48 Temperature 95.5 F L Pulse Rate [Pulse Oximeter] 127 H Respiratory Rate 22 Blood Pressure [Ri ght Upper Arm] 180/137 H Pulse Oximetry 100 Oxygen Delivery Me thod Room Air <Brady Adler MD - Last Filed: 05/08/24 08:37> Documenting provider has reviewed patient's vital signs: yes <Doreen Baldwin MD - Last Filed: 05/11/24 23:59> Common normals: alert <Doreen Baldwin MD - Last Filed: 05/11/24 23:59> Other: Does not appear acutely ill but does seem uncomfortable from the nausea. <Doreen Baldwin MD - Last Filed: 05/11/24 23:59> HENMT: Common normals: normocephalic <Doreen Baldwin MD - Last Filed: 05/11/24 23:59> Head and scalp: normocephalic <Doreen Baldwin MD - Last Filed: 05/11/24 23:59> Face and sinus: normal facial exam <Doreen Baldwin MD - Last Filed: 05/11/24 23:59> Mouth: oral and palatal mucosa normal <Doreen Baldwin MD - Last Filed: 05/11/24 23:59> Throat: posterior oropharynx normal <Doreen Baldwin MD - Last Filed: 05/11/24 23:59> Eye: Common normals: conjunctivae normal <MD David Henriquez Last Filed: 05/11/24 23:59> General eye: normal appearance of both eyes <MD David Henriquez Last Filed: 05/11/24 23:59> Conjunctiva: conjunctiva(e) normal <MD David Henriquez Last Filed: 05/11/24 23:59> Neck & C-Spine: Common normals: full ROM and no lymphadenopathy <MD David Henriquez Last Filed: 05/11/24 23:59> Resp: Common normals: normal respiratory effort, no use of accessory muscles and clear to auscultation bilaterally <MD David Henriquez Last Filed: 05/11/24 23:59> Effort & inspection: able to speak in complete sentences <MD David Henriquez Last Filed: 05/11/24 23:59> Auscultation: clear to auscultation bilaterally <MD David Henriquez Last Filed: 05/11/24 23:59> Cardio: Common normals: regular rate, regular rhythm, S1 normal heart sound, S2 normal heart sound and no murmurs <Doreen Baldwin MD - Last Filed: 05/11/24 23:59> Rate: regular rate <MD David Henriquez Last Filed: 05/11/24 23:59> Rhythm: regular rhythm <MD David Henriquez Last Filed: 05/11/24 23:59> Heart sounds: S1 normal and S2 normal <MD David Henriquez Last Filed: 05/11/24 23:59> GI: Common normals: Normal to inspection, nondistended, normoactive bowel sounds present, soft to palpation, non-tender, no hepatosplenomegaly and no masses <MD David Henriquez Last Filed: 05/11/24 23:59> Palpation: soft and no hepatosplenomegaly <MD David Henriquez Last Filed: 05/11/24 23:59> Extremity: Common normals: normal to inspection, normal capillary refill and no pedal edema <Doreen Baldwin MD - Last Filed: 05/11/24 23:59> Neuro: Sensorium/orientation: alert <Doreen Baldwin MD - Last Filed: 05/11/24 23:59> Speech: speech normal <Doreen Baldwin MD - Last Filed: 05/11/24 23:59> Motor exam: no tremor noted and no movement abnormalities noted <Doreen Baldwin MD - Last Filed: 05/11/24 23:59> Psych: Common normals: speech normal <Doreen Baldwin MD - Last Filed: 05/11/24 23:59> Appearance: grossly normal <Doreen Baldwin MD - Last Filed: 05/11/24 23:59> Attitude: calm <Doreen Baldwin MD - Last Filed: 05/11/24 23:59> Speech: normal speech <Doreen Baldwin MD - Last Filed: 05/11/24 23:59> Insight: insight good <Doreen Baldwin MD - Last Filed: 05/11/24 23:59> Judgement: judgment good <Doreen Baldwin MD - Last Filed: 05/11/24 23:59> Skin: Common normals: no rashes or lesions noted <Doreen Baldwin MD - Last Filed: 05/11/24 23:59> General skin exam: no rashes or lesions noted <Doreen Baldwin MD - Last Filed: 05/11/24 23:59> Course Course ED Course: 43-year-old female presenting with vomiting. Suspect gastroenteritis compound by use of injectable G LP 1 medication. Cannot exclude pancreatitis, gallstone, colitis, enteritis, other pathology. No evidence of GI bleeding. No fever. With current IV fluid conservation protocol due to national shortage, she does not currently meet criteria. Will give 4 mg IV Zofran, 15 mg of IV Toradol and re-evaluate. If symptoms are not improving after 45 minutes, will then consider IV fluids, Compazine. Typical GI labs ordered while we await clinical response. Abdomen is soft, no indications for CT or other imaging at this time. Will hand over care to oncoming day shift partner. <Doreen Baldwin MD - Last Filed: 05/11/24 23:59> Vital Signs Vital signs: Initial Vital Signs Temperature 95.5 F L 05/08/24 06:48 Temperature Source Temporal Artery Scan 05/08/24 06:48 Pulse Rate 127 H 05/08/24 06:48 Pulse Rhythm Regular 05/08/24 06:48 Pulse Strength 3+ Normal 05/08/24 06:48 Respiratory Rate 22 05/08/24 06:48 Blood Pressure 180/137 H 05/08/24 06:48 Blood Pressure Mean 151 H 05/08/24 06:48 Blood Pressure Position Sitting 05/08/24 06:48 Pulse Oximetry 100 05/08/24 06:48 Oxygen Delivery Method Room Air 05/08/24 06:48 Vital Signs Temperature 95.5 F L 05/08/24 06:48 Pulse Rate 127 H 05/08/24 06:48 Respiratory Rate 22 05/08/24 06:48 Blood Pressure 180/137 H 05/08/24 06:48 Pulse Oximetry 100 05/08/24 06:48 Oxygen Delivery Method Room Air 05/08/24 06:48 Temperature 95.5 F L 05/08/24 06:48 Pulse Rate 127 H 05/08/24 06:48 Respiratory Rate 22 05/08/24 06:48 Blood Pressure 180/137 H 05/08/24 06:48 Pulse Oximetry 100 05/08/24 06:48 Oxygen Delivery Method Room Air 05/08/24 06:48 <Doreen Baldwin MD - Last Filed: 05/11/24 23:59> Initial Vital Signs Temperature 95.5 F L 05/08/24 06:48 Temperature Source Temporal Artery Scan 05/08/24 06:48 Pulse Rate 127 H 05/08/24 06:48 Pulse Rhythm Regular 05/08/24 06:48 Pulse Strength 3+ Normal 05/08/24 06:48 Respiratory Rate 22 05/08/24 06:48 Blood Pressure 180/137 H 05/08/24 06:48 Blood Pressure Mean 151 H 05/08/24 06:48 Blood Pressure Position Sitting 05/08/24 06:48 Pulse Oximetry 100 05/08/24 06:48 Oxygen Delivery Method Room Air 05/08/24 06:48 Vital Signs Temperature 95.5 F L 05/08/24 06:48 Pulse Rate 127 H 05/08/24 06:48 Respiratory Rate 22 05/08/24 06:48 Blood Pressure 180/137 H 05/08/24 06:48 Pulse Oximetry 100 05/08/24 06:48 Oxygen Delivery Method Room Air 05/08/24 06:48 Temperature 95.5 F L 05/08/24 06:48 Pulse Rate 127 H 05/08/24 06:48 Respiratory Rate 22 05/08/24 06:48 Blood Pressure 180/137 H 05/08/24 06:48 Pulse Oximetry 100 05/08/24 06:48 Oxygen Delivery Method Room Air 05/08/24 06:48 <Brady Adler MD - Last Filed: 05/08/24 08:37> Medications Administered Medications: Discontinued Medications Generic Name Dose Route Start Last Admin Trade Name Freq PRN Reason Stop Dose Admin Ketorolac Tromethamine 15 mg 05/08/24 07:06 05/08/24 07:24 Ketorolac 15 Mg/Ml Inj IVP 05/08/24 07:07 15 mg ONCE ONE Administration Ondansetron HCl 4 mg 05/08/24 07:06 05/08/24 07:22 Ondansetron 2 Mg/Ml Inj IVP 05/08/24 07:07 4 mg ONCE ONE Administration Pantoprazole Sodium 40 mg 05/08/24 07:08 05/08/24 07:26 Pantoprazole Sodium 40 Mg Inj IVP 05/08/24 07:09 40 mg ONCE ONE Administration <Doreen Baldwin MD - Last Filed: 05/11/24 23:59> Discontinued Medications Generic Name Dose Route Start Last Admin Trade Name Freq PRN Reason Stop Dose Admin Ketorolac Tromethamine 15 mg 05/08/24 07:06 05/08/24 07:24 Ketorolac 15 Mg/Ml Inj IVP 05/08/24 07:07 15 mg ONCE ONE Administration Ondansetron HCl 4 mg 05/08/24 07:06 05/08/24 07:22 Ondansetron 2 Mg/Ml Inj IVP 05/08/24 07:07 4 mg ONCE ONE Administration Pantoprazole Sodium 40 mg 05/08/24 07:08 05/08/24 07:26 Pantoprazole Sodium 40 Mg Inj IVP 05/08/24 07:09 40 mg ONCE ONE Administration <Brady Adler MD - Last Filed: 05/08/24 08:37> Medical Decision Making MDM Narrative Medical decision making narrative: Addendum 8:35 a.m.: The patient is feeling better, headache is resolving, she is going to try and drink some water. If she does well with this week she can be discharged home continue home medications, light activity, light fluid diet today and follow up with primary care in the next 12:48 p.m. as needed, return to ED sooner problems or concerns. Please see Dr. Lira note. Laboratory studies at this time show a normal white count hemoglobin, normal ER profile, LFTs within normal limits, CRP is minimally elevated at 1.3. Lipase is normal at 62. So unable to leave a UA but has not had any urinary symptoms. If she is unable to leave a UA will simply allow to go home rest light activity continue home meds consult her regular physician within the next 12:48 p.m. by phone or return to ED sooner problems or concerns. She was comfortable this. She was starting to feel better. She was not given IV fluids given the shortage of IV fluid availability as she hopefully can take oral now. <Brady Adler MD - Last Filed: 05/08/24 08:37> Lab Data Labs: Lab Results 05/08/24 Range/Units 07:25 WBC 7.38 (4.50-11.00) K/uL RBC 5.17 (4.00-5.20) m/uL Hgb 13.8 (12.0-16.0) gm/dL Hct 43.0 (33.0-51.0) % MCV 83 (80-100) fL MCH 27 (26-34) pg MCHC 32 (32-36) gm/dL RDW Coeff of Fouzia 12.9 (11.5-15.5) % Plt Count 213 (140-440) K/uL Neut % (Auto) 83.5 H (42.0-72.0) % Lymph % (Auto) 13.6 L (20-44) % [place] % (Auto) 2.4 (0.0-11.0) % Eos % (Auto) 0.1 (0.0-7.0) % Baso % (Auto) 0.3 (0.0-3.0) % Neut # (Auto) 6.20 (1.7-7.0) K/uL Lymph # (Auto) 1.00 (0.90-2.90) K/uL [place] # (Auto) 0.20 (0.00-0.90) K/UL Eos # (Auto) 0.01 (0.00-0.50) K/uL Baso # (Auto) 0.02 (0.00-0.30) K/uL Abs Immat Gran (auto) 0.01 (0.00-0.30) K/uL Imm/Tot Granulo (auto) 0.1 % Sodium 136 (135-149) mmol/L Potassium 3.7 (3.6-5.1) mmol/L Chloride 103 (96-114) mmol/L Carbon Dioxide 27 (20-32) mmol/L Anion Gap 6 L (7-15) mEq/L BUN 9 (5-24) mg/dL Creatinine 0.7 (0.5-1.5) mg/dL Estimated Creat Clear 83.95 Estimated GFR 109 ml/min Glucose 121 H (60-115) mg/dL Lactate 1.0 (0.5-1.9) mmol/L Calcium 9.0 (8.4-10.6) mg/dL Total Bilirubin 0.5 (0.1-1.5) mg/dL AST 23 (12-35) U/L ALT 18 (4-35) U/L Alkaline Phosphatase 66 (40-150) U/L C-Reactive Protein 1.3 H (0.5-1.0) mg/dL Total Protein 7.4 (6.0-8.3) g/dL Albumin 4.3 (3.3-5.0) g/dL Lipase 62 (23-300) U/L <Doreen Baldwin MD - Last Filed: 05/11/24 23:59> Lab Results 05/08/24 Range/Units 07:25 WBC 7.38 (4.50-11.00) K/uL RBC 5.17 (4.00-5.20) m/uL Hgb 13.8 (12.0-16.0) gm/dL Hct 43.0 (33.0-51.0) % MCV 83 (80-100) fL MCH 27 (26-34) pg MCHC 32 (32-36) gm/dL RDW Coeff of [place]zia 12.9 (11.5-15.5) % Plt Count 213 (140-440) K/uL Neut % (Auto) 83.5 H (42.0-72.0) % Lymph % (Auto) 13.6 L (20-44) % [place] % (Auto) 2.4 (0.0-11.0) % Eos % (Auto) 0.1 (0.0-7.0) % Baso % (Auto) 0.3 (0.0-3.0) % Neut # (Auto) 6.20 (1.7-7.0) K/uL Lymph # (Auto) 1.00 (0.90-2.90) K/uL [place] # (Auto) 0.20 (0.00-0.90) K/UL Eos # (Auto) 0.01 (0.00-0.50) K/uL Baso # (Auto) 0.02 (0.00-0.30) K/uL Abs Immat Gran (auto) 0.01 (0.00-0.30) K/uL Imm/Tot Granulo (auto) 0.1 % Sodium 136 (135-149) mmol/L Potassium 3.7 (3.6-5.1) mmol/L Chloride 103 (96-114) mmol/L Carbon Dioxide 27 (20-32) mmol/L Anion Gap 6 L (7-15) mEq/L BUN 9 (5-24) mg/dL Creatinine 0.7 (0.5-1.5) mg/dL Estimated Creat Clear 83.95 Estimated GFR 109 ml/min Glucose 121 H (60-115) mg/dL Lactate 1.0 (0.5-1.9) mmol/L Calcium 9.0 (8.4-10.6) mg/dL Total Bilirubin 0.5 (0.1-1.5) mg/dL AST 23 (12-35) U/L ALT 18 (4-35) U/L Alkaline Phosphatase 66 (40-150) U/L C-Reactive Protein 1.3 H (0.5-1.0) mg/dL Total Protein 7.4 (6.0-8.3) g/dL Albumin 4.3 (3.3-5.0) g/dL Lipase 62 (23-300) U/L <Brady Adler MD - Last Filed: 05/08/24 08:37> Discharge Plan Discharge Clinical Impression: Nausea & vomiting <Doreen Baldwin MD - Last Filed: 05/11/24 23:59> Patient Disposition: Home w/ Parent or Adult <Doreen Baldwin MD - Last Filed: 05/11/24 23:59> Condition: Improved <Doreen Baldwin MD - Last Filed: 05/11/24 23:59> Additional Instructions: Rest, light activity, Tylenol Advil for headache, fluids by mouth, recommended drinking water regularly small sips. Follow-up with primary care in 3-4 days not improving, return changes concerns worsening. <Doreen Baldwin MD - Last Filed: 05/11/24 23:59> Activity Level: Light activity <Doreen Baldwin MD - Last Filed: 05/11/24 23:59> Light activity <Brady Adler MD - Last Filed: 05/08/24 08:37> Discharge Diet: Full Liquid <Doreen Baldwin MD - Last Filed: 05/11/24 23:59> Full Liquid <Brady Adler MD - Last Filed: 05/08/24 08:37> Prescriptions: No Action cyclobenzaprine 5 mg tablet 5 mg PO Q12H PRN infliximab [Remicade] 100 mg recon soln IV cephalexin 500 mg capsule 500 mg PO BID 10 Days Qty: 20 0RF fluconazole 150 mg tablet 150 mg PO Q3D Qty: 2 0RF Rx Instructions: may repeat second dose 72 hrs after first dose if symptoms persist albuterol sulfate [ProAir HFA] 90 mcg/actuation HFA aerosol inhaler 2 inh inhalation Q4-6H PRN cetirizine [Zyrtec] 10 mg tablet 10 mg PO DAILY PRN diazepam 5 mg tablet 5 mg PO TID PRN dicyclomine 20 mg tablet 20 mg PO QID PRN epinephrine 0.15 mg/0.3 mL auto-injector 0.3 mg IM Q10M PRN Rx Instructions: for 2 doses levonorgestrel 20 mcg/24 hours (7 yrs) 52 mg intrauterine device 1 device intrauterine ONCE sumatriptan succinate 25 mg tablet See Rx Instructions PO .COMPLEX Rx Instructions: take 1 tab at onset of headache; if no relief may repeat 1 tab after at least 2 hrs; max = 4 tabs/24 hr PO triamcinolone acetonide 0.1 % cream 1 applic topical BID PRN duloxetine 30 mg capsule,delayed release(DR/EC) 60 mg PO DAILY Patient Comments: CROSS TAPER W/SERTRALINE INSTRUCTED. START DULOXETINE 30MG DAILY X1WK THEN INCREASE TO 60MG DAILY leflunomide 10 mg tablet 10 mg PO DAILY Patient Comments: TAKE 1 TABLET BY MOUTH EVERY DAY semaglutide 0.25 mg or 0.5 mg(2 mg/1.5 mL) pen injector 2.4 mg subcut QWEEK metoprolol succinate 25 mg tablet extended release 24 hr 25 mg PO DAILY metoprolol succinate 50 mg tablet extended release 24 hr 50 mg PO DAILY ondansetron 4 mg tablet,disintegrating 4 mg PO Q8H PRN (Reason: nausea and vomiting) Qty: 10 0RF loperamide 2 mg capsule 2 mg PO Q4H PRN (Reason: loose stool) Qty: 10 0RF Rx Instructions: administer after each loose stool until symptoms controlled; do not exceed 8 mg per 24 hrs <Doreen Baldwin MD - Last Filed: 05/11/24 23:59> Follow Up/Referrals: Mary Lou Nunn, [Primary Care Provider] - <Doreen Baldwin MD - Last Filed: 05/11/24 23:59> Stand Alone Forms: [facility] Info Instructions <Doreen Badlwin MD - Last Filed: 05/11/24 23:59>
[2024-05-08] MEDS: ONDANSETRON 2 MG/ML inj 4 MG IVP (07:22)
[2024-05-08] MEDS: KETOROLAC 15 MG/ML inj IVP (07:24)
[2024-05-08] MEDS: PANTOPRAZOLE SODIUM 40 MG INJ IVP (07:26)
[2024-05-08 07:36] LABS: Basophils Absolute Auto 0.02 K/uL (0.00-0.30); Basophils Percent Auto 0.3 % (0.0-3.0); Eosinophils Absolute Auto 0.01 K/uL (0.00-0.50); Eosinophils Percent Auto 0.1 % (0.0-7.0); Hemoglobin* 13.8 gm/dL (12.0-16.0); Immature Granulocytes Abs Auto 0.01 K/uL (0.00-0.30); Immature Granulocytes Pct Auto 0.1 %; Lymphocytes Percent Auto 13.6 % (20-44); Mean Corpuscular HGB Conc 32 gm/dL (32-36); Mean Corpuscular Hemoglobin 27 pg (26-34); Mean Corpuscular Volume 83 fL (80-100); Monocytes Percent Auto 2.4 % (0.0-11.0); Neutrophils Percent Auto 83.5 % (42.0-72.0); Platelet Count* 213 K/uL (140-440); RDW Coefficient of Variation % 12.9 % (11.5-15.5); Red Blood Count 5.17 m/uL (4.00-5.20); White Blood Count* 7.38 K/uL (4.50-11.00)
[2024-05-08 07:46] LABS: Slide Review Reflex No
[2024-05-08 07:51] LABS: Albumin* 4.3 g/dL (3.3-5.0); Chloride* 103 mmol/L (96-114)
[2024-05-08 07:52] LABS: Potassium* 3.7 mmol/L (3.6-5.1); Sodium* 136 mmol/L (135-149)
[2024-05-08 07:54] LABS: Alkaline Phosphatase* 66 U/L (40-150); Anion Gap 6 mEq/L (7-15); Aspartate Amino Transferase* 23 U/L (12-35); Bilirubin Total* 0.5 mg/dL (0.1-1.5); Blood Urea Nitrogen* 9 mg/dL (5-24); Carbon Dioxide* 27 mmol/L (20-32); Creatinine* 0.7 mg/dL (0.5-1.5); Est. Creatinine Clearance* 83.95; Estimated Glomerular Filt Rate 109 ml/min; Lipase* 62 U/L (23-300); Total Protein* 7.4 g/dL (6.0-8.3)
[2024-05-08 07:55] LABS: Alanine Aminotransferase* 18 U/L (4-35); Glucose* 121 mg/dL (60-115)
[2024-05-08 07:57] LABS: C Reactive Protein* 1.3 mg/dL (0.5-1.0)
== END 2024-05-08 09:03 | disposition home or self-care (01) ==
PROVIDERS: Emergency Provider Family Medicine; PCP Family Medicine
DX: R11.2 Nausea with vomiting, unspecified (principal)
CPT/HCPCS: 36415; 80053; 81003; 81025; 83605; 83690; 85025; 86140; 96374; 96375; 99283; 99284; J1885; J2405; J2470

== ENCOUNTER 2024-05-09 16:02 | Emergency (ER) | payer OTHER, MEDICAID, SELFPAY ==
[2024-05-09] VITALS (9 sets, daily range): BP systolic 136; BP diastolic 93; PULSE 97–107; RESP 16; TEMP 36.8; O2SAT 98–100; BMI 37.2
--- NOTE | 2024-05-09 16:28 | ED_ITS ---
HPI - General Adult General Date Seen: 05/09/24 Chief complaint: Nausea/Vomiting Stated complaint: Tingling sensation across body Time Seen by Provider: 05/09/24 16:04 History of Present Illness HPI narrative: 43-year-old female with a history of hypertension, fibromyalgia, irritable bowel syndrome, anxiety, GERD, endometriosis, psoriatic arthritis. She had a recent bout of sore throat and was prescribed Keflex, although she was strep negative. She was seen in the ER last night (overnight Monday into Monday morning) by Dr. Baldwin for nausea that had woken her up at about 2:00 a.m. headache as well.. Notes indicate she does use a GLP 1 receptor for weight loss and did take a dose Monday night. Temperature 95.5?, pulse 127, blood pressure 180/137. She was treated in the ER with Zofran and Toradol. WBC 7.3, hemoglobin 13.8, platelet count 213. Sodium 136, potassium 3.7, chloride 103, bicarb 27, BUN 9, creatinine 0.7, glucose 121, lactic acid 1.0, calcium 9.0, AST 23, ALT 18, total bilirubin 0.5, alk-phos 66, CRP 1.3h, lipase 62 History obtained from the patient and her daughter today is as follows. She has a history of psoriatic arthritis. She is on Remicade and luflonamide for that. Because of the immunosuppression she often has trouble when she gets a cold and often settles in her throat. She also notes that sometimes when she gets a sore throat at signals the onset of a flare of her psoriatic arthritis. The roughly 2 weeks or so ago, patient isn't exactly sure, she developed symptoms of nasal congestion and significant drainage in her throat. She was doing saltwater gargles and actually coughed out a very large plug of mucus from the back of her throat thought she might be getting better. However couple of days after that her sore throat was worse this. She notice an exudate tonsillitis. She went to the [facility]. She had a strep test that was negative. However she was put on cephalexin. She says the provider told her that they were trying to prevent a sore throat from getting worse. She often gets side effects from antibiotics especially abdominal pain, and sometimes diarrhea. She has been on the cephalexin for 5 or 6 days now. A few days ago, she started developing some diarrhea (watery) and a little bit of abdominal pain. It was fairly mild. She took her weekly injection of wegovy on Monday evening. She notes that sometimes she takes wegovy she gets nausea. She has a longstanding prescription Zofran so she has some Zofran ODT on hand at home. She does not usually have to take the Zofran. At about 2:00 a.m. on Monday night (actually, early Monday morning) she woke up with a lot of nausea. She had multiple episodes of nonbloody vomiting. She could get under control with Zofran. She also developed a headache. The nausea came before the headache. The headache was not abrupt in onset. She came to the ER (as above). She did feel better after meds in the ER. She was told to come back to the ER if her symptoms came back or got worse. She had a little bit of nausea and symptoms yesterday but were generally manageable. This morning symptoms worse again with more nausea. She says when she threw up this morning there was a large amount of food and she thinks most of the food she had eaten yesterday was still in her stomach). Nothing bloody. Along with this her headache came back. This afternoon she is feeling weak. She is feeling tingly and dizzy and her whole body, especially in both of her hands this started about an hour or 2 prior to arrival. She does not have a fever but notes that her normal core temperature 95? or 96 F and today was 98 when she triage. No objective fevers. She has only urinated once today and was darker color than normal. She did have a little bit of diarrhea today, non mucousy nonbloody. She is having abdominal pain that comes and goes. She is not coughing. How much ongoing sore throat. She called her clinic triage line and they told to come to the ER because she might be in shock. She does not think she is in shock. She is endorsing anxiety because she so tingly. No rash. Related Data Home Medications ?Medication ?Instructions ?Recorded ?Confirmed albuterol sulfate 90 mcg/actuation 2 inh inhalation Q4-6H PRN 02/25/22 05/09/24 aerosol inhaler (ProAir HFA) cetirizine 10 mg tablet (Zyrtec) 10 mg PO DAILY PRN 02/25/22 05/09/24 diazepam 5 mg tablet 5 mg PO TID PRN 02/25/22 05/09/24 dicyclomine 20 mg tablet 20 mg PO QID PRN 02/25/22 05/09/24 epinephrine 0.15 mg/0.3 mL 0.3 mg IM Q10M PRN 02/25/22 05/09/24 injection,auto-injector levonorgestrel 21 mcg/24 hr (up to 1 device intrauterine ONCE 02/25/22 05/09/24 8 years) 52 mg intrauterine device sumatriptan succinate 25 mg tablet See Rx Instructions PO .COMPLEX 02/25/22 05/09/24 triamcinolone acetonide 0.1 % 1 applic topical BID PRN 02/25/22 05/09/24 topical cream duloxetine 30 mg capsule,delayed 60 mg PO DAILY 04/08/22 05/09/24 release leflunomide 10 mg tablet 10 mg PO DAILY 04/08/22 05/09/24 cyclobenzaprine 5 mg tablet 5 mg PO Q12H PRN 05/09/22 05/09/24 infliximab 100 mg intravenous IV 09/05/22 05/02/24 solution (Remicade) semaglutide 0.25 mg or 0.5 mg (2 2.4 mg subcut QWEEK 04/07/23 05/09/24 mg/1.5 mL) subcutaneous pen injector metoprolol succinate 25 mg 25 mg PO DAILY 01/26/24 05/09/24 tablet,extended release 24 hr metoprolol succinate 50 mg 50 mg PO DAILY 05/08/24 05/09/24 tablet,extended release 24 hr Previous Rx's ?Medication ?Instructions ?Recorded loperamide 2 mg capsule 2 mg PO Q4H PRN loose stool #10 08/24/23 caps ondansetron 4 mg disintegrating 4 mg PO Q8H PRN nausea and 08/24/23 tablet vomiting #10 tabs cephalexin 500 mg capsule 500 mg PO BID 10 days #20 caps 05/02/24 fluconazole 150 mg tablet 150 mg PO Q3D 2 doses #2 tabs 05/02/24 Allergies Allergy/AdvReac Type Severity Reaction Status Date / Time bee venom protein (honey bee) Allergy Severe Anaphylaxis Verified 05/08/24 06:52 honey Allergy Severe Anaphylaxis Verified 05/08/24 06:52 latex Allergy Severe Verified 05/08/24 06:52 shrimp Allergy Severe Verified 05/08/24 06:52 shellfish derived Allergy Intermediate Swelling Verified 05/08/24 06:52 of Lip/Tongue/Throat avocado AdvReac Intermediate Verified 05/08/24 06:52 methotrexate AdvReac Intermediate Verified 05/08/24 06:52 Bee Wax Allergy Severe Anaphylaxis Uncoded 05/02/24 09:41 [facility] Medical History Strep pharyngitis ?J02.0 - Streptococcal pharyngitis (ICD-10) History of migraine ?Z86.69 - Personal history of other diseases of the nervous system and sense organs (ICD-10) IUD (intrauterine device) in place ?Z97.5 - Presence of (intrauterine) contraceptive device (ICD-10) PTSD (post-traumatic stress disorder) ?F43.10 - Post-traumatic stress disorder, unspecified (ICD-10) Hypertension ?I10 - Essential (primary) hypertension (ICD-10) Fibromyalgia (12/28/17) ?M79.7 - Fibromyalgia (ICD-10) Vitamin D deficiency ?E55.9 - Vitamin D deficiency, unspecified (ICD-10) Irritable bowel syndrome ?K58.9 - Irritable bowel syndrome without diarrhea (ICD-10) History of depression (06/26/13) ?Z87.59 - Personal history of other complications of , childbirth and the puerperium (ICD-10) ?Z86.59 - Personal history of other mental and behavioral disorders (ICD-10) Generalized anxiety disorder ?F41.1 - Generalized anxiety disorder (ICD-10) Gastroesophageal reflux disease (08/10/15) ?K21.9 - Gastro-esophageal reflux disease without esophagitis (ICD-10) Endometriosis (08/19/09) ?N80.9 - Endometriosis, unspecified (ICD-10) Immunosuppressed status ?D84.9 - Immunodeficiency, unspecified (ICD-10) Psoriatic arthritis ?L40.50 - Arthropathic psoriasis, unspecified (ICD-10) Multiple drug allergies ?Z88.9 - Allergy status to unspecified drugs, medicaments and biological substances (ICD-10) Surgical History History of benign breast biopsy ?Z98.890 - Other specified postprocedural states (ICD-10) History of laparoscopy (08/19/09) ?Z98.890 - Other specified postprocedural states (ICD-10) Family History Mother Diabetes High cholesterol Skin cancer Rheumatoid arthritis Sister Rheumatoid arthritis Daughter Rheumatoid arthritis Social History Narrative: . 3 children. Nonsmoker. 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 Highest level of school completed/degree received: Bachelor's degree How many days of moderate to strenuous exercise, like a brisk walk, did you do in the last 7 days: 3 Smoking Status: Never smoker Do you use any of these nicotine containing products: None Second hand tobacco smoke exposure: No How often do you have a drink containing alcohol: never How often do you have six or more drinks on one occasion: Never AUDIT-C Alcohol total score: 0 Non-prescribed substance use: denies use Are you now , , , , never or living with a partner: Social isolation score (0-1 are the most socially isolated patients): 0 Do you think of yourself as: straight/heterosexual Gender Identity: female Are you currently sexually active: No service: No Exam Narrative: Exam Narrative: Constitutional: Appears well-developed and well-nourished. Alert. Conversant but is somewhat difficult, non chronological historian. She can be fairly detailed for most of her history but can not recall some details. HENT: Head: Atraumatic. Nose: Nose normal. Mouth/Throat: Oral mucosa is clear but dry. no trismus. Pharynx normal. Tonsils symmetric. No tonsillar enlargement, erythema, or exudate. Eyes: Conjunctivae normal. EOM normal. Pupils equal, round, and reactive to light. No scleral icterus. Neck: Normal range of motion. Neck supple. No tracheal deviation present. Cardiovascular: Normal rate (was tachycardic in triage, has normal heart rate while lying down), regular rhythm. No gallop. No friction rub. No murmur heard. Symmetric radial artery pulses. Normal capillary refill in her fingertips. Pulmonary/Chest: Easily able to sit up for lung exam. Effort normal. No stridor. No respiratory distress. No wheezes. No rales. No rhonchi . No tenderness. Abdominal: Soft. Bowel sounds normal. No distension. No mass. Marked epigastric and right upper quadrant tenderness. No rebound. No guarding. No Cadet sign Musculoskeletal: RUE: Normal range of motion. No tenderness. No deformity LUE: Normal range of motion. No tenderness. No deformity RLE: Normal range of motion. No edema. No tenderness. No deformity LLE: Normal range of motion. No edema. No tenderness. No deformity Neurological: Alert and oriented to person, place, and time. Normal strength. CN II-VII intact. No sensory deficit. GCS eye subscore is 4. GCS verbal subscore is 5. GCS motor subscore is 6. Normal coordination Skin: Skin is warm and dry. No rash noted. No pallor. Normal capillary refill. Psychiatric: Normal mood. Is feeling very tingly and is very worried about that. She says that the triage nurse was worried she might be in shock but she is dismissive of that idea. She says that her daughter was worried about the tingling. However her daughter is here being very calm supportive. There seems to be in under pinning of anxiety from the patient. Const: Vital Signs, click to edit/add: Vital Signs - 24 hr 05/09/24 16:09 05/09/24 18:02 05/09/24 18:15 Temperature 98.2 F Pulse Rate 99 101 H Pulse Rate [Right Radial] 103 H Respiratory Rate 16 Blood Pressure [Ri ght Upper Arm] 136/93 H Pulse Oximetry 99 98 98 Oxygen Delivery Me thod Room Air 05/09/24 18:30 05/09/24 18:45 05/09/24 19:03 Temperature Pulse Rate 97 99 100 Pulse Rate [Right Radial] Respiratory Rate Blood Pressure [Ri ght Upper Arm] Pulse Oximetry 99 100 99 Oxygen Delivery Me thod 05/09/24 19:15 05/09/24 19:30 05/09/24 19:45 Temperature Pulse Rate 107 H 105 H 104 H Pulse Rate [Right Radial] Respiratory Rate Blood Pressure [Ri ght Upper Arm] Pulse Oximetry 99 98 98 Oxygen Delivery Me thod Course Course ED Course: Recheck-says her headache was much improved. Came back a little bit when she got up to go to the bathroom nausea is much improved inches she is hungry. She says really wants to go eat a large steak. Will try a p.o. challenge here with some water and a turkey sandwich 1st. Ordered Reglan for her ongoing milder headache. Reevaluation(s) Reevaluation #1: Recheck-continue severe well. Reevaluation #2: Recheck-patient had leave the ER quickly before I get discharge paperwork done. Vital Signs Vital signs: Initial Vital Signs Temperature 98.2 F 05/09/24 16:09 Temperature Source Temporal Artery Scan 05/09/24 16:09 Pulse Rate 103 H 05/09/24 16:09 Pulse Rhythm Regular 05/09/24 16:09 Respiratory Rate 16 05/09/24 16:09 Blood Pressure 136/93 H 05/09/24 16:09 Blood Pressure Mean 107 H 05/09/24 16:09 Pulse Oximetry 99 05/09/24 16:09 Oxygen Delivery Method Room Air 05/09/24 16:09 Vital Signs Temperature 98.2 F 05/09/24 16:09 Pulse Rate 103 H 05/09/24 16:09 Respiratory Rate 16 05/09/24 16:09 Blood Pressure 136/93 H 05/09/24 16:09 Pulse Oximetry 99 05/09/24 16:09 Oxygen Delivery Method Room Air 05/09/24 16:09 Temperature 98.2 F 05/09/24 16:09 Pulse Rate 104 H 05/09/24 19:45 Respiratory Rate 16 05/09/24 16:09 Blood Pressure 136/93 H 05/09/24 16:09 Pulse Oximetry 98 05/09/24 19:45 Oxygen Delivery Method Room Air 05/09/24 16:09 Medications Administered Medications: Discontinued Medications Generic Name Dose Route Start Last Admin Trade Name Freq PRN Reason Stop Dose Admin Ketorolac Tromethamine 15 mg 05/09/24 16:59 05/09/24 17:24 Ketorolac 15 Mg/Ml Inj IVP 05/09/24 17:00 15 mg ONCE ONE Administration Lorazepam 1 mg 05/09/24 16:59 05/09/24 17:25 Lorazepam 2 Mg/Ml Inj IVP 05/09/24 17:00 1 mg ONCE ONE Administration Metoclopramide HCl 10 mg 05/09/24 19:27 05/09/24 19:49 Metoclopramide Hcl 5 Mg/Ml Inj IVP 05/09/24 19:28 10 mg ONCE ONE Administration Ondansetron HCl 4 mg 05/09/24 16:59 05/09/24 17:24 Ondansetron 2 Mg/Ml Inj IVP 05/09/24 17:00 4 mg ONCE ONE Administration Medical Decision Making MDM Narrative Medical decision making narrative: Pleasant 43-year-old female accompanied to the ER today by her daughter with concerns of repetitive nausea and vomiting, dehydration, headache, also upper abdominal pain. She has a complex presentation with a a recent upper respiratory illness leading to tonsillitis, strep negative in urgent care last week, currently a course of cephalexin. She also has episodes of nausea related to Wygovy treatment for weight loss. Differential is broad, including viral gastroenteritis, viral URI causing her headache, as well as other more serious causes such as cholecystitis causing her upper abdominal pain and nausea and vomiting, appendicitis, bowel obstruction (although she does not have a distended tympanic abdomen on exam). Consider other unusual infections since she is immunosuppressed (for psoriatic arthritis). She is not febrile but does feel achy. COVID and influenza PCR negative. Laboratory workup shows reassuring white count 8.02. Differential is also normal-57% neutrophils, 39% lymphocytes. Hemoglobin normal at 14.5. Platelet count normal at 227. CRP is normal at 0.9. CRP had been slightly elevated at 1.3 during her ER visit 38 hours ago. test negative. Metabolic profile shows mild hypokalemia of 3.2, likely due to GI losses from vomiting. Fortunately kidney function is normal. Glucose is normal. Venous lactic is normal. With her headache consider central causes of headache. Headache was not abrupt in onset and came after the nausea and vomiting other night. At this point I do not think the headache requires a CT scan or lumbar puncture under evaluate for subarachnoid. No associated neck pain to suggest cervical artery dissection. No focal stroke symptoms. With her immunosuppression, consider possible meningitis. However clinically she is well appearing. Lab workup is reassuring. There is no neck stiffness. At this point the risk of lumbar puncture would far outweigh the benefit. Gallbladder ultrasound does show stones but no evidence for gallbladder wall thickening and no evidence for choledocholithiasis. Liver function labs are again normal. Pancreas labs are normal. Abdominal pain is improved here in the ER. At this point no evidence for active cholecystitis, choledocholithiasis, hepatitis, pancreatitis. P.o. challenge went well. Patient was feeling better and then left the ER before I could place formal discharge orders. At this point I suspect that her gallstones are incidental. Reviewed gallbladder physiology with the patient and her daughter. She will be able to monitor for signs of biliary colic or cholecystitis. However I was not able to give her formal discharge instructions before she left. Lab Data Labs: Lab Results 05/09/24 05/09/24 Range/Units 17:05 18:58 WBC 8.02 (4.50-11.00) K/uL RBC 5.42 H (4.00-5.20) m/uL Hgb 14.5 (12.0-16.0) gm/dL Hct 44.8 (33.0-51.0) % MCV 83 (80-100) fL MCH 27 (26-34) pg MCHC 32 (32-36) gm/dL RDW Coeff of [place] 13.1 (11.5-15.5) % Plt Count 227 (140-440) K/uL Neut % (Auto) 57.7 (42.0-72.0) % Lymph % (Auto) 35.9 (20-44) % [place] % (Auto) 5.5 (0.0-11.0) % Eos % (Auto) 0.4 (0.0-7.0) % Baso % (Auto) 0.5 (0.0-3.0) % Neut # (Auto) 4.63 (1.7-7.0) K/uL Lymph # (Auto) 2.88 (0.90-2.90) K/uL [place] # (Auto) 0.40 (0.00-0.90) K/UL Eos # (Auto) 0.03 (0.00-0.50) K/uL Baso # (Auto) 0.04 (0.00-0.30) K/uL Abs Immat Gran (auto) 0.00 (0.00-0.30) K/uL Imm/Tot Granulo (auto) 0.0 % Sodium 137 (135-149) mmol/L Potassium 3.2 L (3.6-5.1) mmol/L Chloride 102 (96-114) mmol/L Carbon Dioxide 25 (20-32) mmol/L Anion Gap 10 (7-15) mEq/L BUN 7 (5-24) mg/dL Creatinine 0.8 (0.5-1.5) mg/dL Estimated Creat Clear 73.46 Estimated GFR 93 ml/min Glucose 90 (60-115) mg/dL Lactate 1.4 (0.5-1.9) mmol/L Calcium 9.4 (8.4-10.6) mg/dL Total Bilirubin 0.4 (0.1-1.5) mg/dL AST 21 (12-35) U/L ALT 18 (4-35) U/L Alkaline Phosphatase 57 (40-150) U/L C-Reactive Protein 0.9 (0.5-1.0) mg/dL Total Protein 7.6 (6.0-8.3) g/dL Albumin 4.4 (3.3-5.0) g/dL Lipase 40 (23-300) U/L HCG, Qual Negative (Negative) Urine Color Yellow (Yellow) Urine Appearance Clear (Clear) Urine pH 8.0 (5.0-8.5) Ur Specific [place] 1.015 (1.000-1.030) Urine Protein Negative (Negative) Urine Glucose (UA) Negative (Negative) Urine Ketones Negative (Negative) Urine Blood Negative (Negative) Urine Nitrite Negative (Negative) Urine Bilirubin Negative (Negative) Urine Urobilinogen 0.2 (0.2-1.0) Ur Leukocyte Esterase Negative (Negative) Urine RBC 0-2 (0-2) Urine WBC 0-2 (0-5) Ur Squamous Epith Cells Few (None-Few) Urine Bacteria Few A (None) SARS-CoV-2 (PCR) Negative SARS-CoV-2 (Negative) Influenza Type A (PCR) Negative PCR FLU A (Negative) Influenza Type B (PCR) Negative PCR FLU B (Negative) Imaging Data GB US: Attestation: I have reviewed the pertinent imaging results. Radiologist's impression: Findings: Gallbladder: Shadowing mobile gallstones are present. No gallbladder wall thickening or pericholecystic fluid. Negative sonographic Cadet`s. Common bile duct: 3 millimeters. Pancreas: Partially visualized and grossly unremarkable. Liver: Partially visualized and grossly unremarkable. Color flow is present within the main portal vein. Free fluid: None. Impression: Cholelithiasis. Discharge Plan Discharge Clinical Impression: Nausea & vomiting, Headache, Gallstones Prescriptions: No Action cyclobenzaprine 5 mg tablet 5 mg PO Q12H PRN infliximab [Remicade] 100 mg recon soln IV cephalexin 500 mg capsule 500 mg PO BID 10 Days Qty: 20 0RF fluconazole 150 mg tablet 150 mg PO Q3D Qty: 2 0RF Rx Instructions: may repeat second dose 72 hrs after first dose if symptoms persist albuterol sulfate [ProAir HFA] 90 mcg/actuation HFA aerosol inhaler 2 inh inhalation Q4-6H PRN cetirizine [Zyrtec] 10 mg tablet 10 mg PO DAILY PRN diazepam 5 mg tablet 5 mg PO TID PRN dicyclomine 20 mg tablet 20 mg PO QID PRN epinephrine 0.15 mg/0.3 mL auto-injector 0.3 mg IM Q10M PRN Rx Instructions: for 2 doses levonorgestrel 20 mcg/24 hours (7 yrs) 52 mg intrauterine device 1 device intrauterine ONCE sumatriptan succinate 25 mg tablet See Rx Instructions PO .COMPLEX Rx Instructions: take 1 tab at onset of headache; if no relief may repeat 1 tab after at least 2 hrs; max = 4 tabs/24 hr PO triamcinolone acetonide 0.1 % cream 1 applic topical BID PRN duloxetine 30 mg capsule,delayed release(DR/EC) 60 mg PO DAILY Patient Comments: CROSS TAPER W/SERTRALINE INSTRUCTED. START DULOXETINE 30MG DAILY X1WK THEN INCREASE TO 60MG DAILY leflunomide 10 mg tablet 10 mg PO DAILY Patient Comments: TAKE 1 TABLET BY MOUTH EVERY DAY semaglutide 0.25 mg or 0.5 mg(2 mg/1.5 mL) pen injector 2.4 mg subcut QWEEK metoprolol succinate 25 mg tablet extended release 24 hr 25 mg PO DAILY metoprolol succinate 50 mg tablet extended release 24 hr 50 mg PO DAILY ondansetron 4 mg tablet,disintegrating 4 mg PO Q8H PRN (Reason: nausea and vomiting) Qty: 10 0RF loperamide 2 mg capsule 2 mg PO Q4H PRN (Reason: loose stool) Qty: 10 0RF Rx Instructions: administer after each loose stool until symptoms controlled; do not exceed 8 mg per 24 hrs Follow Up/Referrals: Mary Lou Nunn DO [Primary Care Provider] -
--- NOTE | 2024-05-09 16:59 | CRLHL7_ITS ---
For Patients: As a result of the Century Cures Act, medical imaging exams and procedure reports are released immediately into your electronic medical record. You may view this report before your referring provider. If you have questions, please contact your health care provider. Indication: Nausea and vomiting Technique: Limited right upper quadrant ultrasound utilizing grayscale and color flow techniques Comparison: None Findings: Gallbladder: Shadowing mobile gallstones are present. No gallbladder wall thickening or pericholecystic fluid. Negative sonographic Cadet`s. Common bile duct: 3 millimeters. Pancreas: Partially visualized and grossly unremarkable. Liver: Partially visualized and grossly unremarkable. Color flow is present within the main portal vein. Free fluid: None. Impression: Cholelithiasis. Dictated by Dav Jacobs MD @ 05/09/2024 6:30:07 PM (Electronically Signed)
[2024-05-09 17:21] LABS: Basophils Absolute Auto 0.04 K/uL (0.00-0.30); Basophils Percent Auto 0.5 % (0.0-3.0); Eosinophils Absolute Auto 0.03 K/uL (0.00-0.50); Eosinophils Percent Auto 0.4 % (0.0-7.0); Hematocrit 44.8 % (33.0-51.0); Hemoglobin* 14.5 gm/dL (12.0-16.0); Lactate* 1.4 mmol/L (0.5-1.9); Lymphocytes Absolute Auto 2.88 K/uL (0.90-2.90); Lymphocytes Percent Auto 35.9 % (20-44); Mean Corpuscular HGB Conc 32 gm/dL (32-36); Mean Corpuscular Hemoglobin 27 pg (26-34); Mean Corpuscular Volume 83 fL (80-100); Monocytes Percent Auto 5.5 % (0.0-11.0); Neutrophils Absolute Auto 4.63 K/uL (1.7-7.0); Neutrophils Percent Auto 57.7 % (42.0-72.0); Platelet Count* 227 K/uL (140-440); RDW Coefficient of Variation % 13.1 % (11.5-15.5); Red Blood Count 5.42 m/uL (4.00-5.20); White Blood Count* 8.02 K/uL (4.50-11.00)
[2024-05-09 17:23] LABS: Slide Review Reflex No
[2024-05-09] MEDS: KETOROLAC 15 MG/ML inj IVP (17:24)
[2024-05-09] MEDS: ONDANSETRON 2 MG/ML inj 4 MG IVP (17:24)
[2024-05-09] MEDS: LORazepam 2 MG/ML inj 1 MG IVP (17:25)
[2024-05-09 17:37] LABS: Albumin* 4.4 g/dL (3.3-5.0); Chloride* 102 mmol/L (96-114); Sodium* 137 mmol/L (135-149)
[2024-05-09 17:38] LABS: Potassium* 3.2 mmol/L (3.6-5.1)
[2024-05-09 17:40] LABS: Alkaline Phosphatase* 57 U/L (40-150); Anion Gap 10 mEq/L (7-15); Aspartate Amino Transferase* 21 U/L (12-35); Bilirubin Total* 0.4 mg/dL (0.1-1.5); Blood Urea Nitrogen* 7 mg/dL (5-24); Calcium* 9.4 mg/dL (8.4-10.6); Carbon Dioxide* 25 mmol/L (20-32); Creatinine* 0.8 mg/dL (0.5-1.5); Est. Creatinine Clearance* 73.46; Estimated Glomerular Filt Rate 93 ml/min; Glucose* 90 mg/dL (60-115); Lipase* 40 U/L (23-300); Total Protein* 7.6 g/dL (6.0-8.3)
[2024-05-09 17:41] LABS: Alanine Aminotransferase* 18 U/L (4-35)
[2024-05-09 17:45] LABS: C Reactive Protein* 0.9 mg/dL (0.5-1.0)
[2024-05-09 17:55] LABS: HCG Qualitative Serum* Negative (Negative)
[2024-05-09 17:58] LABS: PCR FLU A Negative PCR FLU A (Negative); PCR FLU B Negative PCR FLU B (Negative); SARS PCR* Negative SARS-CoV-2 (Negative)
[2024-05-09 19:05] LABS: Appearance Urine Clear (Clear); Bilirubin Urine Negative (Negative); Blood Urine Negative (Negative); Color Urine Yellow (Yellow); Glucose Urine Negative (Negative); Ketones Urine Negative (Negative); Leukocyte Esterase Urine Negative (Negative); Nitrite Urine Negative (Negative); Protein Urine Negative (Negative); Specific Gravity Urine 1.015 (1.000-1.030); Urobilinogen Urine 0.2 (0.2-1.0)
[2024-05-09 19:22] LABS: Bacteria Urine Few; RBC Urine 0-2 (0-2); Squamous Epithelial Cell Urine Few (None-Few); WBC Urine 0-2 (0-5)
[2024-05-09] MEDS: METOCLOPRAMIDE HCL 5 MG/ML INJ 10 MG IVP (19:49)
== END 2024-05-09 21:16 | disposition home or self-care (01) ==
LOC: ED 17:22
PROVIDERS: Emergency Provider Emergency Medicine; PCP Family Medicine
DX: R11.2 Nausea with vomiting, unspecified (principal); R51.9 Headache, unspecified; K80.20 Calculus of gallbladder without cholecystitis without obstruction
CPT/HCPCS: 36415; 76705; 80053; 81001; 83605; 83690; 84703; 85025; 86140; 87086; 87631; 94761; 96374; 96375; 99284; J1885; J2060; J2405; J2765

== ENCOUNTER 2024-05-31 09:00 | Outpatient (RCR) | payer OTHER, MEDICAID, SELFPAY ==
[2023-12-15 08:50] VITALS: BP 144/104; PULSE 96; RESP 18; TEMP 36.5; O2SAT 99
[2023-12-15] MEDS: ACETAMINOPHEN 325 MG TABLET 650 MG PO (09:31)
[2023-12-15] MEDS: diphenhydrAMINE 12.5 MG/5 ML ORAL SOLN PO (09:31)
[2023-12-15] MEDS: METHYLPREDNISOLONE SOD SUCC 40 MG/ML IVP (09:33)
[2024-01-26 09:00] VITALS: BP 123/85; PULSE 81; RESP 16; TEMP 36.2; O2SAT 97
[2024-01-26] MEDS: ACETAMINOPHEN 325 MG TABLET 650 MG PO (09:18)
[2024-01-26] MEDS: 0.9 % SODIUM CHLORIDE 250 ml 250 ML 35 ML IV (09:18)
[2024-01-26] MEDS: METHYLPREDNISOLONE SOD SUCC 40 MG/ML IVP (09:18)
[2024-01-26] MEDS: diphenhydrAMINE 12.5 MG/5 ML ORAL SOLN PO (09:18)
--- NOTE | 2024-03-06 09:55 | URNOTE ---
Inflectra (Q5103) has been approved, up to 2000mg/200units per visit, administered no more often that once every 4 weeks. 03/01/2024 to 03/01/2025. Auth #[id number].
[2024-03-08 08:46] VITALS: BP 159/98; PULSE 88; RESP 17; TEMP 36.2; O2SAT 100
[2024-03-08] MEDS: 0.9 % SODIUM CHLORIDE 250 ml 250 ML 35 ML IV (09:12)
[2024-03-08] MEDS: SODIUM CHLORIDE 0.9 % (FLUSH) 10 ML SYRINGE IVF (09:12)
[2024-03-08] MEDS: diphenhydrAMINE 12.5 MG/5 ML ORAL SOLN PO (09:12)
[2024-03-08] MEDS: ACETAMINOPHEN 325 MG TABLET 650 MG PO (09:12)
[2024-03-08] MEDS: METHYLPREDNISOLONE SOD SUCC 40 MG/ML IVP (09:12)
[2024-03-08 10:31] VITALS: BP 160/97; PULSE 83; RESP 16; TEMP 36.3; O2SAT 100
[2024-04-19 08:28] VITALS: BP 140/94; PULSE 95; RESP 16; TEMP 36.1; O2SAT 98
[2024-04-19] MEDS: ACETAMINOPHEN 325 MG TABLET 650 MG PO (08:45)
[2024-04-19] MEDS: 0.9 % SODIUM CHLORIDE 250 ml 250 ML 35 ML IV (08:45)
[2024-04-19] MEDS: METHYLPREDNISOLONE SOD SUCC 40 MG/ML IVP (08:46)
[2024-04-19] MEDS: diphenhydrAMINE 12.5 MG/5 ML ORAL SOLN PO (09:00)
--- NOTE | 2024-04-19 13:27 | ONC.NURNOTE ---
Patient's orders on 05/15/24. Fax sent to patient's Criminal Records Technician requesting new orders prior to patient's next treatment. Patient in clinic today and updated that new orders will be needed prior to her next infusion. Patient will call her clinic on Monday to request those orders to be completed and faxed back.
[2024-05-31 09:01] VITALS: BP 140/94; PULSE 90; RESP 16; TEMP 35.7; O2SAT 96
[2024-05-31] MEDS: ACETAMINOPHEN 325 MG TABLET 650 MG PO (09:10)
[2024-05-31] MEDS: diphenhydrAMINE 12.5 MG/5 ML ORAL SOLN PO (09:30)
[2024-05-31] MEDS: METHYLPREDNISOLONE SOD SUCC 40 MG/ML IVP (09:33)
== END 2024-06-12 23:59 | disposition home or self-care (01) ==
LOC: CCIC 09:00
PROVIDERS: PCP Family Medicine; Referring Provider Family Medicine; Visit Provider Clinical Nurse Specialist
DX: L40.50 Arthropathic psoriasis, unspecified (principal)
CPT/HCPCS: 96375; 96376; 96413; 96415; Q5103; A9270; J2919; J7050

== ENCOUNTER 2024-12-27 09:00 | Outpatient (RCR) | payer OTHER, MEDICAID, SELFPAY ==
[2024-07-12 10:02] VITALS: BP 149/94; PULSE 98; RESP 16; TEMP 36.4; O2SAT 96
[2024-07-12] MEDS: ACETAMINOPHEN 325 MG TABLET 650 MG PO (10:03)
[2024-07-12] MEDS: diphenhydrAMINE 12.5 MG/5 ML ORAL SOLN PO (10:03)
[2024-07-12] MEDS: METHYLPREDNISOLONE SOD SUCC 40 MG/ML IVP (10:04)
--- NOTE | 2024-07-12 12:56 | ONC.NURNOTE ---
Noted hypertension throughout infusion Infliximab started as a rapid infusion at 100 cc/hr X 15 min - VS check BP elevated 166/98 discussed with Adwoa Ge APRN and patient plan modified to titrate infusion instead of the rapid infusion- rate to 150 cc X 15 min then 250 cc to complete, and continue to moniter BP patient was advised to contact PCP about strategies for managing the hypertension during medical appts patient sent message to Dr Nunn Patient denies MUSA's, neurological changes, flushing states she feels well during her infusion completed treatment with continued hypertension patient will monitor her BP at home- baseline is 120's/80's
[2024-08-23 09:55] VITALS: BP 163/102; PULSE 89; RESP 18; TEMP 35.7; O2SAT 99
[2024-08-23] MEDS: ACETAMINOPHEN 325 MG TABLET 650 MG PO (10:31)
[2024-08-23] MEDS: diphenhydrAMINE 12.5 MG/5 ML ORAL SOLN PO (10:31)
[2024-08-23] MEDS: METHYLPREDNISOLONE SOD SUCC 40 MG/ML IVP (10:32)
[2024-10-04 08:44] VITALS: BP 157/88; PULSE 90; RESP 16; TEMP 36.5; O2SAT 96
[2024-10-04] MEDS: METHYLPREDNISOLONE SOD SUCC 40 MG/ML IVP (09:22)
[2024-10-04] MEDS: diphenhydrAMINE 12.5 MG/5 ML ORAL SOLN PO (09:24)
[2024-10-04] MEDS: ACETAMINOPHEN 325 MG TABLET 650 MG PO (09:25)
[2024-11-15 09:06] VITALS: BP 134/89; PULSE 95; RESP 18; TEMP 36.8; O2SAT 100
[2024-11-15] MEDS: SODIUM CHLORIDE 0.9 % (FLUSH) 10 ML SYRINGE IVF (09:25)
[2024-11-15] MEDS: 0.9 % SODIUM CHLORIDE 250 ml IV (09:26)
[2024-11-15] MEDS: diphenhydrAMINE 12.5 MG/5 ML ORAL SOLN PO (09:27)
[2024-11-15] MEDS: METHYLPREDNISOLONE SOD SUCC 40 MG/ML IVP (09:27)
[2024-11-15] MEDS: ACETAMINOPHEN 325 MG TABLET 650 MG PO (09:27)
[2024-12-27 09:20] VITALS: BP 134/86; PULSE 90; RESP 17; TEMP 36.3; O2SAT 98
[2024-12-27] MEDS: diphenhydrAMINE 12.5 MG/5 ML ORAL SOLN PO (09:56)
[2024-12-27] MEDS: METHYLPREDNISOLONE SOD SUCC 40 MG/ML IVP (09:56)
[2024-12-27] MEDS: ACETAMINOPHEN 325 MG TABLET 650 MG PO (09:56)
== END 2025-01-08 23:59 | disposition home or self-care (01) ==
LOC: CCIC 09:00
PROVIDERS: PCP Family Medicine; Referring Provider Family Medicine; Visit Provider Clinical Nurse Specialist
DX: L40.50 Arthropathic psoriasis, unspecified (principal)
CPT/HCPCS: 96375; 96413; 96415; Q5103; A9270; J2919; J7050